=== PATIENT | female | born 2000 | race Caucasian/White ===

== ENCOUNTER → 2019-10-23 15:30 | Outpatient (BNVA) | payer MEDICAID, SELFPAY | PROVIDERS: Family Provider Family Medicine; Visit Provider Obstetrics & Gynecology | DX: N97.9 Female infertility, unspecified (principal); N92.6 Irregular menstruation, unspecified | CPT/HCPCS: 83036; 84146; 84443; 84703 ==

== ENCOUNTER → 2019-10-26 15:37 | Outpatient (BNVA) | payer MEDICAID, SELFPAY | PROVIDERS: Family Provider Family Medicine; Visit Provider Obstetrics & Gynecology | DX: N97.9 Female infertility, unspecified (principal) | CPT/HCPCS: 76830 ==

== ENCOUNTER → 2019-11-09 10:34 | Outpatient (BNVA) | payer MEDICAID, SELFPAY | PROVIDERS: Family Provider Family Medicine; Visit Provider Nurse Practitioner Women's Health | DX: O99.340 Other mental disorders complicating pregnancy, unspecified trimester (principal); F32.9 Major depressive disorder, single episode, unspecified; F41.9 Anxiety disorder, unspecified; Z78.9 Other specified health status; O99.211 Obesity complicating pregnancy, first trimester | CPT/HCPCS: 81000; 84702 ==

== ENCOUNTER → 2019-11-13 14:18 | Outpatient (BNVA) | payer MEDICAID, SELFPAY | PROVIDERS: Family Provider Family Medicine; Visit Provider Nurse Practitioner Women's Health | DX: Z78.9 Other specified health status (principal) | CPT/HCPCS: 84702 ==

== ENCOUNTER → 2019-11-22 14:56 | Outpatient (BNVA) | payer MEDICAID, SELFPAY | PROVIDERS: Family Provider Family Medicine; Visit Provider Obstetrics & Gynecology | DX: Z36.87 Encounter for antenatal screening for uncertain dates (principal); Z3A.01 Less than 8 weeks gestation of pregnancy | CPT/HCPCS: 76817 ==

== ENCOUNTER 2020-01-03 00:37 | Emergency (ER) | payer MEDICAID, SELFPAY ==
[2020-01-03 00:43] VITALS: BP 115/58; PULSE 78; RESP 16; TEMP 36.7; O2SAT 97; BMI 36.0
[2020-01-03 00:49] VITALS: BP 117/74; PULSE 80; RESP 18; O2SAT 97
--- NOTE | 2020-01-03 00:49 | ED_ITS ---
HPI - Nausea/Vomiting/Diarrhea General: Chief complaint: Nausea/Vomiting/Diarrhea Stated complaint: h/a; vomitting Time Seen by Provider: 01/03/20 00:43 Source: patient Mode of arrival: ambulatory Limitations: no limitations History of Present Illness: HPI Narrative: 19-year-old female who is currently 12 weeks states she has had vomiting during the . Patient had a recent vaginosis and is currently on Flagyl and is on her last day. She states she had increased vomiting is unable to hold any thing down. Patient without upper Phenergan. She states she had a mild headache as well. Denies any worsening or improving factors. She denies any abdominal pain. She denies any vaginal bleeding. MD elicited complaint: nausea and vomiting Onset (ago): day(s) Associated nausea: Yes Associated symtoms: Reports headache(s) and nausea; Denies chest pain or dysuria Review of Systems Const: Denies: fever(s), chills, body aches or change in appetite Eyes: Denies: blurry vision or eye discomfort ENMT: Denies: throat pain or dental pain Card: Denies: chest pain Resp: Denies: dyspnea GI: Reports: nausea and vomiting : Denies: dysuria Musc: Denies: neck pain or back pain Skin/Breast: Denies: rash Neuro: Reports: headache(s) Psych: Denies: depression Armani/Lymph: Denies: easy bruising All/Imm: Denies: urticaria PFSH ED PFSH: Medical History Abnormal uterine bleeding (AUB) Anxiety with depression Surgical History No pertinent past surgical history Family History Family/Other Breast cancer, Onset Age: 75 maternal aunt Diabetes maternal aunt Grandmother Stroke maternal Diabetes Maternal grandmother Hypertension Maternal grandmother Mother Diabetes Hypertension Sister Ovarian cancer Denies family history of Colon cancer Clotting disorder Hyperlipidemia Chronic kidney disease (CKD) Anesthesia complication Family history of thyroid problem Bleeding disorder Uterine cancer Social History Smoking and tobacco status: former smoker Quit status (tobacco): has quit using tobacco Year quit tobacco: 2018 Alcohol intake: never Physical Exam Const: COMMON NORMALS: no acute distress, patient oriented x3 and healthy appearing HENMT: COMMON NORMALS: normocephalic and atraumatic HEAD & SCALP: normocephalic and atraumatic Eye: COMMON NORMALS: Equal, round and reactive pupils present and EOMs intact bilaterally PUPIL: Yes Equal, round and reactive pupils present Neck/C-Spine: COMMON NORMALS: full ROM and supple Chest: COMMONS NORMALS: normal inspection of the chest and normal palpation of entire chest wall Resp: COMMON NORMALS: normal respiratory effort, No retractions, No use of accessory muscles and clear to auscultation bilaterally AUSCULTATION: clear to auscultation bilaterally Cardio: COMMON NORMALS: regular rate, regular rhythm and No murmurs present (Cardio) RATE: regular rate RHYTHM: regular rhythm GI: COMMON NORMALS: Normal to inspection, nondistended, normoactive bowel sounds present, Soft to palpation, non-tender and no masses PALPATION: Yes Soft to palpation Extremity: COMMON NORMALS: normal to inspection and full ROM Neuro: COMMON NORMALS: patient oriented x3, moves all extremities and no focal motor deficits Psych: COMMON NORMALS: mental status grossly normal, Normal thought process present and cooperative THOUGHT PROCESS: Normal thought process present Skin: COMMON NORMALS: no rashes or lesions noted and no wounds GENERAL SKIN EXAM: no rashes or lesions noted Course Vital Signs: Vital signs: Vital Signs Temperature 98.1 F 01/03/20 00:43 Pulse Rate 88 01/03/20 01:52 Respiratory Rate 18 01/03/20 01:52 Blood Pressure 111/74 01/03/20 01:52 Pulse Oximetry 100 01/03/20 01:52 MDM - Nausea/Vomiting/Diarrhea MDM Narrative: Medical decision making narrative: Patient presents with hyperemesis gravidarum. She feels much improved here after IV fluids and Reglan is able to tolerate p.o. Patient is stable for discharge and will prescribe her Reglan. She is to follow-up with her primary care doctor in 2 to 4 days and return if worsening. She has no abdominal pain. Discharge Plan Discharge Patient Disposition: Home Clinical Impression: Hyperemesis gravidarum Condition: Stable Prescriptions: New Reglan 10 mg tablet 10 mg PO Q6H PRN (Reason: nausea and vomiting) Qty: 20 RF: 0 No Action ferrous sulfate [FeroSul] 325 mg (65 mg iron) tablet 325 mg PO BID RF: 0 prenat.vits,eugenia,eca-dcla-dkzeb Tablet 1 tab PO DAILY RF: 0 Discharge Orders: Discharge Order (Routine); Ordered 01/03/20 Ordered By: Kathleen Garcia Referrals: León Vences MD [Primary Care Provider] - 1-3 days Discharge Diet: Advance as tolerated Discharge Activity: Resume usual activity Patient Instructions: Hyperemesis Gravidarum (ED) Stand Alone Forms: Work/School Release Discharge Date/Time: 01/03/20 02:00 Coding Level of Care Code ED Horse Wrangler for Chg Fwd Exam Comprehensive
[2020-01-03] MEDS: sodium chloride 0.9% 1,000 ML 999 ML IV (00:59)
[2020-01-03] MEDS: diphenhydrAMINE 50 mg/mL SDV 1mL IVP (01:01)
[2020-01-03] MEDS: metoclopramide 5 mg/mL SDV 2 mL 10 MG IVP (01:02)
[2020-01-03 01:30] VITALS: BP 120/61; PULSE 79; RESP 18; O2SAT 100
[2020-01-03 01:52] VITALS: BP 111/74; PULSE 88; RESP 18; O2SAT 100
--- NOTE | 2020-01-03 01:57 | PC.NURSE ---
i agree with this assessment
== END 2020-01-03 02:00 | disposition home or self-care (01) ==
PROVIDERS: Emergency Provider Emergency Medicine; PCP Family Medicine
DX: O21.0 Mild hyperemesis gravidarum (principal); Z87.891 Personal history of nicotine dependence
CPT/HCPCS: 12345; 96361; 96374; 96375; 99282; 99283; J1200; J2765; J7030

== ENCOUNTER 2020-03-16 21:30 | Outpatient (CLI) | payer MEDICAID, SELFPAY ==
[2020-03-16 21:37] VITALS: RESP 16; TEMP 36.7; BMI 36.2
[2020-03-16 21:44] VITALS: BP 125/59; PULSE 96
[2020-03-16 22:20] VITALS: RESP 16; TEMP 37.1
== END 2020-03-16 22:02 | disposition home or self-care (01) ==
LOC: OPOB 21:31 → OBGYN 21:31
PROVIDERS: PCP Family Medicine; Visit Provider Family Medicine
DX: O36.8190 Decreased fetal movements, unspecified trimester, not applicable or unspecified (principal); Z3A.00 Weeks of gestation of pregnancy not specified
CPT/HCPCS: 59025; 99211

== ENCOUNTER 2020-03-26 13:25 | Outpatient (CLI) | payer MEDICAID, SELFPAY ==
[2020-03-26 13:45] VITALS: BP 0/0
[2020-03-26 13:46] VITALS: BP 130/74; PULSE 91
[2020-03-26 14:20] VITALS: BP 130/74; PULSE 91; RESP 20; TEMP 36.5
[2020-03-26 14:24] VITALS: BMI 35.6
== END 2020-03-26 14:20 | disposition home or self-care (01) ==
LOC: OPOB 13:34 → OBGYN 13:36
PROVIDERS: PCP Family Medicine; Visit Provider Family Medicine
DX: O46.90 Antepartum hemorrhage, unspecified, unspecified trimester (principal); Z3A.00 Weeks of gestation of pregnancy not specified; R10.9 Unspecified abdominal pain
CPT/HCPCS: 99211

== ENCOUNTER 2020-05-15 02:17 | Outpatient (CLI) | payer MEDICAID, SELFPAY ==
[2020-05-15 02:20] VITALS: RESP 16; TEMP 36.8; BMI 37.8
[2020-05-15 02:50] VITALS: TEMP 37
== END 2020-05-15 02:55 | disposition home or self-care (01) ==
LOC: OPOB 02:18 → OBGYN 02:21
PROVIDERS: PCP Family Medicine; Visit Provider Family Medicine
DX: O26.899 Other specified pregnancy related conditions, unspecified trimester (principal); Z3A.00 Weeks of gestation of pregnancy not specified; N89.8 Other specified noninflammatory disorders of vagina
CPT/HCPCS: 83986; 99211

== ENCOUNTER 2020-06-20 21:33 | Outpatient (CLI) | payer MEDICAID, SELFPAY ==
[2020-06-20 21:33] VITALS: BMI 39.3
[2020-06-20 21:57] VITALS: TEMP 36.4
[2020-06-20 21:58] VITALS: BP 120/60; PULSE 98
[2020-06-20 22:31] VITALS: BP 104/58; PULSE 82; TEMP 36.7
== END 2020-06-20 22:41 | disposition home or self-care (01) ==
LOC: OPOB 21:46 → OBGYN 21:47
PROVIDERS: PCP Family Medicine; Visit Provider Family Medicine
DX: O26.899 Other specified pregnancy related conditions, unspecified trimester (principal); Z3A.00 Weeks of gestation of pregnancy not specified; R10.9 Unspecified abdominal pain
CPT/HCPCS: 59025; 83986; 99211

== ENCOUNTER 2020-07-19 14:38 | Outpatient (CLI) | payer MEDICAID, SELFPAY ==
[2020-07-19 14:55] VITALS: BP 141/69; PULSE 89; TEMP 36.6
[2020-07-19 15:22] VITALS: BMI 40.1
[2020-07-19 15:30] VITALS: BP 132/70; PULSE 81
[2020-07-19 15:51] VITALS: BP 144/72; PULSE 90
[2020-07-19 16:25] VITALS: BP 144/72; PULSE 90; RESP 16; TEMP 36.6
== END 2020-07-19 16:25 | disposition home or self-care (01) ==
LOC: OPOB 14:39 → OBGYN 14:41
PROVIDERS: PCP Family Medicine; Visit Provider Family Medicine
DX: O26.899 Other specified pregnancy related conditions, unspecified trimester (principal); Z3A.00 Weeks of gestation of pregnancy not specified; R10.9 Unspecified abdominal pain
CPT/HCPCS: 59025; 99211; J2274; J2370; J2405

== ENCOUNTER 2020-07-19 22:14 | Inpatient (IN) | payer MEDICAID, SELFPAY ==
[2020-07-19] MEDS: lactated ringers 1,000 ML 999 ML IV (22:26)
[2020-07-19 22:30] VITALS: BMI 39.6
[2020-07-19] MEDS: citric acid-sodium citrate 30 mL UDC PO (22:45)
[2020-07-19] MEDS: famotidine 20 mg/2 mL INJ IVP (22:45)
[2020-07-19] MEDS: metoclopramide 5 mg/mL SDV 2 mL 10 MG IVP (22:45)
[2020-07-19 22:52] LABS: Basophils % 0.2 %; Eosinophils % 0.2 %; Hematocrit 34.6 % (37.0-47.0); Hemoglobin 10.9 g/dL (11.5-15.3); Lymphocytes # 1.5 10^3/uL (0.8-4.8); Lymphocytes % 7.4 %; Mean Corpuscular HGB Conc 31.5 g/dL (30.0-36.0); Mean Corpuscular Hemoglobin 24.8 pg (28.0-34.0); Mean Corpuscular Volume 78.8 fL (81-99); Mean Platelet Volume 11.5 fL (7.4-10.4); Monocytes % 5.1 %; Neutrophils # 17.07 10^3/uL (1.8-7.7); Neutrophils % 86.7 %; Nucleated Red Blood Cells % 0 %; Platelet Count 253 10^3/cmm (130-400); Red Blood Count 4.39 10^6/uL (4.1-5.3); Red Cell Distribution Width 13.6 % (12.1-15.1); White Blood Count 19.7 10^3/uL (4.0-10.0)
--- NOTE | 2020-07-19 23:34 | P.ANESUD_ITS ---
Pre-Anesthetic Update Pre-Anesthetic Assessment: Date of Surgery/Procedure: 07/19/20 Preop Kamilah gnosis: IUP Any changes to Pre-Anesthetic Assessment?: Yes Labs Last 48hrs: Laboratory Results - last 48 hr 07/19/20 22:25 WBC 19.7 H RBC 4.39 Hgb 10.9 L Hct 34.6 L MCV 78.8 L MCH 24.8 L MCHC 31.5 RDW 13.6 Plt Count 253 MPV 11.5 H Neut % (Auto) 86.7 Lymph % (Auto) 7.4 [place] % (Auto) 5.1 Eos % (Auto) 0.2 Baso % (Auto) 0.2 Neut # (Auto) 17.07 H Lymph # (Auto) 1.5 [place] # (Auto) 1.0 H Eos # (Auto) 0.0 Baso # (Auto) 0.0 Nucleated RBC % (a uto) 0 Nucleated RBCs # 0.0 Exam: Pre-Anes Outpt Exam: alert, oriented x 3, clear to auscultation bilaterally and regular rate & rhythm Other Pertinent Information: Other Pertinent Information: Breech presentation, laboring, stat C/S. Cardiac Studies: No Data to Display
[2020-07-20] VITALS (21 sets, daily range): BP systolic 101–148; BP diastolic 27–83; PULSE 64–114; RESP 14–18; TEMP 36.2–37; O2SAT 93–99
--- NOTE | 2020-07-20 00:29 | P.HP_ITS ---
Providers/Chief Complaint Admitting Physician: León Vences MD Primary Care Provider: León Vences MD Chief Complaint: ROM HPI ROUNDHOUSE SUPERVISOR History of Present Illness Dianne Hidalgo is a 20 year old 1 female at 40 weeks estimated gestational age who presented to the hospital with spontaneous rupture membranes. After arriving the hospital she was checked and found to be in a breech presentation. She is also 8 cm dilated. As result I was contacted and the decision was made to proceed with a lower transverse section. The patient had an unremarkable . She was GBS negative. Her Covid status is negative. She passed her glucose screen. The remainder of her labs were within normal limits. Review of Systems General: Reports: 10 or more systems reviewed and unremarkable except in HPI and below Const: Reports: fatigue; Denies: fever(s) Eyes: Denies: change in vision Card: Denies: chest pain Musc: Reports: back pain Armani/Lymph: Denies: easy bruising Medications/Allergies Home Medications Medication Instructions Recorded Confirmed Last Taken Type No Known Home Medications 07/19/20 07/19/20 Unknown History Allergies Allergy/AdvReac Type Severity Reaction Status Date / Time No Known Allergies Allergy Verified 07/19/20 15:29 PFSH ROUNDHOUSE SUPERVISOR PFSH: Medical History (Updated 07/20/20 @ 00:32 by León Vences MD) Abnormal uterine bleeding (AUB) Anxiety with depression Surgical History No pertinent past surgical history Family History Family/Other Breast cancer, Onset Age: 75 maternal aunt Diabetes maternal aunt Grandmother Stroke maternal Diabetes Maternal grandmother Hypertension Maternal grandmother Mother Diabetes Hypertension Sister Ovarian cancer Denies family history of Colon cancer Clotting disorder Hyperlipidemia Chronic kidney disease (CKD) Anesthesia complication Family history of thyroid problem Bleeding disorder Uterine cancer Social History Smoking and tobacco status: former smoker Quit status (tobacco): has quit using tobacco Year quit tobacco: 2018 Alcohol intake: never Other Female Reproductive History: Hx Age of Menarche: 8 Duration of menses: 6-7 days (5-7 days) Cycle Length: irregular Menstrual flow: normal/abnormal: heavy History History History 1 Term 0 Miscarriages/Ectopic 1 0 Living Children 0 Care JOSE Calculator Estimated Delivery Date Method Current WG Current Estimate 06/20/20 LMP (Uncertain) 44w 2d Expected Delivery Route/Plan Vaginal. Specific Issues/Plans * UNKNOWN LMP * OBESITY * PRE- DEPRESSION AND ANXIETY Physical Exam Narrative: EXAM NARRATIVE: Obese Const: COMMON NORMALS: patient oriented x3 and alert HENMT: COMMON NORMALS: moist oral mucous membranes HEAD & SCALP: normal to inspection Chest: COMMONS NORMALS: normal inspection of the chest Resp: COMMON NORMALS: clear to auscultation bilaterally AUSCULTATION: clear to auscultation bilaterally Cardio: COMMON NORMALS: regular rate and regular rhythm RATE: regular rate RHYTHM: regular rhythm GI: INSPECTION: Yes normal to inspection and Yes other (Gravid) Extremity: COMMON NORMALS: normal to inspection GENERAL: Yes edema (Trace) Neuro: COMMON NORMALS: patient oriented x3, moves all extremities and no sen silvestre deficits noted SENSORIUM/ORIENTATION: Yes alert Psych: COMMON NORMALS: mental status grossly normal Skin: COMMON NORMALS: no rashes or lesions noted GENERAL SKIN EXAM: no rashes or lesions noted Data : 07/19/20 22:25 A&P Assessment and plan (1) Obesity affecting : Status: Acute Qualifiers: Trimester: first trimester Qualified Code(s): O99.211 - Obesity complicating , first trimester (2) Anxiety during : Status: Acute (3) Depression affecting : Status: Acute (4) 40 weeks gestation of : Status: Acute (5) Breech presentation: Due to the baby's breech presentation, I discussed the risks and alternatives with the patient and her partner. I discussed the risks of bleeding, infection, and damage intra-abdominal organs. There are no further questions and wish to proceed. Status: Acute Attestations Medical Necessity Statement*: Routine and post care Coding Level of Care Code Acute Supervisor Accounting Clerks for Traci Quan Diagnoses Obesity affecting O99.211 Trimester: first trimester Anxiety during O99.340; F41.9 Depression affecting O99.340; F32.9 40 weeks gestation of Z3A.40 Breech presentation O32.1XX0
--- NOTE | 2020-07-20 00:34 | P.OP_ITS ---
Operative Report Date of procedure: July 20, 2020 Pre-op Diagnosis: IUP Pre-op Diagnosis: 40 weeks, breech presentation, spontaneous rupture of membranes, active labor Post-op diagnosis: same Procedure Done: Low transverse section Specimens removed/disposition: 1. Female infant with a weight 7 pounds 13 ounces of and Apgars of 8, 9 2. Placenta with a three-vessel cord delivered intact Pathology: none sent Surgeon: León Vences Anesthesia: Other (Spinal) Estimated blood loss (mL): 1,000 Condition: stable Brief History: Refer to history and physical Procedure: The patient was brought back to the operating room where she was prepped and draped in usual sterile fashion. Anesthesia was found to be adeq uate. A lower transverse skin incision was then made with a #10 blade. I then dissected down to the underlying subcutaneous tissue until arriving at the prerectal fascia. The fascia was then nicked with the scalpel bilaterally. The fascial incisions were then carried laterally with Weber scissors. Attention was then turned to the superior aspect of the incision which was grasped with kochers and tented up away from the underlying rectus abdominis muscles. The muscles were then dissected away from the fascia manually, and later with Weber scissors. Attention was then turned to the inferior aspect of the incision, and the fascia was dissected away from the underlying muscle in similar fashion. The rectus abdominis muscles were then spread manually. The peritoneum was entered manually. Excellent visualization of the uterus was noted. A lower transverse uterine incision was then made with a #10 blade. Upon arriving at the intrauterine cavity, the uterine incision was then extended manually. The infant was noted to be a nai breech position. The baby was delivered without difficulty. After delivery of the head, the mouth and nose were suctioned at the site of the incision. Meconium was noted. There was no nuchal cord. The cord was cut and clamped. The baby was then handed to the waiting nurse. The placenta was removed intact. The uterus was externalized. The in trauterine cavity was cleansed of any remaining debris. The uterine incision was reapproximated in 2 layers. The first layer was performed with 0 Vicryl in a running locked stitch. The second layer was an imbricating stitch also using 0 Vicryl. The uterus was replaced into the abdomen. The peritoneum was then irrigated with warm saline. I reexamined the uterine incision and found it to be hemostatic. The rectus abdominis muscles were then reapproximated using 0 Vicryl in a running stitch. The fascia was then reapproximated using 0 Vicryl in running stitch. The subcutaneous tissue was then reapproximated using 0 Vicryl running stitch. The skin was reapproximated using july. A sterile dressing was placed. All counts were correct x2. Both the mother and baby were in stable condition.
[2020-07-20] MEDS: ondansetron 2 mg/ML SDV 2 mL 4 MG IVP (02:13)
[2020-07-20] MEDS: promethazine 25 mg/mL SDV 1 mL IM (04:15)
[2020-07-20] MEDS: ketorolac 30 mg/mL INJ IVP (06:37)
--- NOTE | 2020-07-20 09:37 | ANE.PACU2 ---
Inpatient post-anesthesia follow up: Airway intact: Yes Vital signs: Temperature 98.6 F Pulse Rate 91 Respiratory Rate 16 Blood Pressure 130/83 Pulse Oximetry 98 Oxygen Delivery Me thod Room Air Oxygen Flow Rate Fraction of Inspir ed Oxygen Hydration adequate: Yes Nausea and vomiting: No Pain level: 2 Mental status: Baseline
[2020-07-20 13:36] LABS: Hematocrit 27.6 % (37.0-47.0); Hemoglobin 8.8 g/dL (11.5-15.3); Mean Corpuscular HGB Conc 31.9 g/dL (30.0-36.0); Mean Corpuscular Hemoglobin 24.9 pg (28.0-34.0); Mean Corpuscular Volume 78.2 fL (81-99); Mean Platelet Volume 11.1 fL (7.4-10.4); Platelet Count 189 10^3/cmm (130-400); Red Blood Count 3.53 10^6/uL (4.1-5.3); Red Cell Distribution Width 13.9 % (12.1-15.1); White Blood Count 19.3 10^3/uL (4.0-10.0)
[2020-07-20] MEDS: ibuprofen 800 mg tablet PO ×2 (15:49→21:04)
[2020-07-20] MEDS: ferrous sulfate EC 325 mg Tablet PO (18:11)
[2020-07-20] MEDS: docusate sodium 100 mg Capsule PO (18:11)
--- NOTE | 2020-07-20 20:32 | PC.NURSE ---
Dressing removed by this nurse. Incision C/D/I, BOBBIN STRIPPER. Patient instructed with shower care. Linens changed, trash and dirty linens taken out of room. JEANNE MOMIN
[2020-07-20] MEDS: HYDROcodone-acetaminophen 5-325 mg Tablet PO (22:50)
--- NOTE | 2020-07-21 06:24 | PC.NURSE ---
Patient states she passed gas at 0300 AR RN
[2020-07-21 06:25] VITALS: BP 116/71; PULSE 76; RESP 18; TEMP 37.1; O2SAT 97
[2020-07-21] MEDS: ibuprofen 800 mg tablet PO (08:50)
[2020-07-21] MEDS: ferrous sulfate EC 325 mg Tablet PO (08:50)
[2020-07-21] MEDS: prenatal vitamin Capsule 1 CAP PO (08:50)
[2020-07-21] MEDS: docusate sodium 100 mg Capsule PO (08:50)
[2020-07-21 10:00] VITALS: BP 111/82; PULSE 100; RESP 18; TEMP 36.8; O2SAT 99
--- NOTE | 2020-07-21 12:15 | P.DS_ITS ---
Discharge Providers OPERATIONS SUPPORT REPRESENTATIVE Date of Admission: 07/19/20 22:14 Date of Discharge: 07/21/20 Attending Provider at Admission: León Vences MD Attending Provider at Discharge: León Vences MD Primary Care Provider: León Vences MD Diagnoses at Discharge Discharge Diagnosis (1) Obesity affecting : Status: Acute Qualifiers: Trimester: first trimester Qualified Code(s): O99.211 - Obesity complicating , first trimester (2) Anxiety during : Status: Acute (3) Depression affecting : Status: Acute (4) 40 weeks gestation of : Status: Acute (5) Breech presentation: Status: Acute Reason for Visit Reason for Visit: ROM Hospital Course Hospital Course The patient presented to the hospital in active labor and was ruptured membranes. She was checked and found to be in breech position. As result the patient was set up for a section. The was performed without complications. Patient's course was also uncomplicated. Her bleeding was within normal limits. Her pain was controlled. She was able to ambulate, she passed gas. Her diet was advanced without difficulty. There were no concerns. The patient did have some anxieties as far as doing with her baby. The nurses were able to help her to address those anxieties. Information Peripartum Data: Delivery Method: Physical Exam Narrative: EXAM NARRATIVE: She is in no acute distress Lungs are clear auscultation bilaterally Her heart has a regular rate and rhythm Her fundus is below the umbilicus and firm Her dressing is clean, dry and intact Her extremities have trace edema Urinary Catheter Management^: Pereira: Cath Placed During This Visit: yes, but has since been removed by the nurse Reason for Continuing Indwelling Catheter: Decision to DC Catheter Urinary Catheter Date of Insertion: 07/19/20 Urinary Catheter Time of Insertion: 23:19 Date Urinary Catheter Removed: 07/20/20 Time Urinary Catheter Discontinued: 10:33 Discharge Data Data Completed and Pending: Labs from last 24 hours 07/20/20 13:20 WBC 19.3 H RBC 3.53 L Hgb 8.8 L Hct 27.6 L MCV 78.2 L MCH 24.9 L MCHC 31.9 RDW 13.9 Plt Count 189 MPV 11.1 H Vitals: Last Vital Signs Temp 98.2 F 07/21/20 10:00 Pulse 100 07/21/20 10:00 Resp 18 07/21/20 10:00 BP 111/82 07/21/20 10:00 Pulse Ox 99 07/21/20 10:00 Discharge Plan Discharge Patient Disposition: Home Condition: Stable Prescriptions: New hydrocodone-acetaminophen 5-325 mg Tablet 1 - 2 tab PO Q4H PRN (Reason: Moderate To Severe Pain) Qty: 30 RF: 0 ibuprofen 800 mg Tablet 800 mg PO TID Qty: 45 RF: 0 -U 106.5-1 mg Capsule 1 cap PO BREAKFAST Qty: 90 RF: 1 hydrocodone-acetaminophen 5-325 mg tablet 1 tab PO Q6H PRN (Reason: pain) Qty: 30 RF: 0 Discharge Orders: Discharge Order (Routine); Ordered 07/21/20 Ordered By: León Vences Referrals: León Vences MD [Primary Care Provider] - 4-7 days (schedule at the same time as baby's appt Also set up appt at 6 weeks) Discharge Diet: Regular Discharge Activity: Limit activity as instructed Patient Instructions: Depression (GEN), and the Working Mom (GEN), Expression, Collection and Storage of Breastmilk (GEN), How to Hold and Breastfeed Your Baby (GEN), and Nipple Soreness (GEN), Breast Fullness Versus Breast Engorgement (GEN), How to Increase Your Milk Supply (DC), How to Tell if Your Baby is Getting Enough Breast Milk (GEN), OB C- Section - Vangie/Jeanna, OB Discharge Report, OB Food/Drug Interaction Guide, Abnormal Bleeding Discharge Attestations OPERATIONS SUPPORT REPRESENTATIVE Time Spent in Discharge Care*: less than 30 min Coding Level of Care Code Acute Post Office Markup Clerk for Chg Fwd Diagnoses Obesity affecting O99.211 Trimester: first trimester Anxiety during O99.340; F41.9 Depression affecting O99.340; F32.9 40 weeks gestation of Z3A.40 Breech presentation O32.1XX0
[2020-07-21 14:20] VITALS: BP 115/83; PULSE 102; RESP 16; TEMP 36.7; O2SAT 99
== END 2020-07-21 14:15 | disposition home or self-care (01) | DRG 788 ==
PROVIDERS: Admitting Provider Family Medicine; PCP Family Medicine; Visit Provider Family Medicine
PROC: (CPT 59514; principal; 2020-07-19 22:50)
DX: O32.1XX0 Maternal care for breech presentation, not applicable or unspecified (principal); Z3A.40 40 weeks gestation of pregnancy; Z37.0 Single live birth; Z87.891 Personal history of nicotine dependence; O99.214 Obesity complicating childbirth; O99.344 Other mental disorders complicating childbirth; F41.8 Other specified anxiety disorders
CPT/HCPCS: 12345; 36415; 51702; 59409; 85025; 85027; 96372; 99211; J0690; J1885; J2405; J2550; J2765; J3490

== ENCOUNTER → 2021-06-20 17:35 | Outpatient (BNVA) | payer MEDICAID, SELFPAY | PROVIDERS: PCP Family Medicine; Visit Provider Nurse Practitioner | DX: R10.9 Unspecified abdominal pain (principal); K29.00 Acute gastritis without bleeding | CPT/HCPCS: 81000 ==

== ENCOUNTER 2021-06-22 21:25 | Emergency (ER) | payer MEDICAID, SELFPAY ==
[2021-06-22 21:32] VITALS: BP 138/86; PULSE 73; RESP 18; TEMP 36.7; O2SAT 98; BMI 36.3
--- NOTE | 2021-06-22 22:47 | W.ED.OVERDOS ---
HPI - Overdose General: Chief Complaint: Overdose Stated Complaint: Took to many medication on accident Time Seen by Provider: 06/22/21 22:47 History of Present Illness: HPI Narrative: 21-year-old female who takes 20 mg of esCitalopram daily forgotten that she had taken her dose and repeated with a second dose. Patient reports that she feels poorly but otherwise does not have any abnormal symptoms. Spouse brought her in due to what he reports some hallucinations and acting abnormal. Spouse states that she is doing better since she is got into the ER. Patient denies any suicidal homicidal intention. Patient denies any chest pain or other symptoms. Review of Systems Psych: Reports: mood swings [facility] ED PFSH: Medical History (Updated 06/22/21 @ 22:49 by ZULEMA Alejandre) Abnormal uterine bleeding (AUB) Anxiety with depression Surgical History No pertinent past surgical history Family History Family/Other Breast cancer, Onset Age: 75 maternal aunt Diabetes maternal aunt Grandmother Stroke maternal Diabetes Maternal grandmother Hypertension Maternal grandmother Mother Diabetes Hypertension Sister Ovarian cancer Denies family history of Colon cancer Clotting disorder Hyperlipidemia Chronic kidney disease (CKD) Anesthesia complication Family history of thyroid problem Bleeding disorder Uterine cancer Social History Smoking and tobacco status: never smoked Quit status (tobacco): has quit using tobacco Year quit tobacco: 2018 Alcohol intake: never Female Reproductive History: Date of last menstrual period: 05/23/21 Physical Exam Const: COMMON NORMALS: alert GENERAL APPEARANCE: cooperative and well kempt HENMT: COMMON NORMALS: atraumatic HEAD & SCALP: atraumatic Resp: COMMON NORMALS: normal respiratory effort and clear to auscultation bilaterally AUSCULTATION: clear to auscultation bilaterally Cardio: COMMON NORMALS: regular rate and regular rhythm RATE: regular rate RHYTHM: regular rhythm Neuro: SENSORIUM/ORIENTATION: Yes alert Psych: COMMON NORMALS: Normal thought process present APPEARANCE: Yes well kempt ATTITUDE: Yes engaged ACTIVITY/MOTOR BEHAVIOR: Yes appropriate eye contact SPEECH: Yes rapid MOOD & AFFECT: Yes elevated mood THOUGHT PROCESS: Normal thought process present THOUGHT CONTENT: Yes Normal thought content present Course Vital Signs: Vital signs: Vital Signs Temperature 98.1 F 06/22/21 21:32 Pulse Rate 73 06/22/21 21:32 Respiratory Rate 18 06/22/21 21:32 Blood Pressure 138/86 06/22/21 21:32 Pulse Oximetry 98 06/22/21 21:32 MDM - Overdose MDM Narrative: Medical decision making narrative: Patient came in for evaluation after taking a second dose of esCitalopram for total of 40 mg. On exam patient is alert and oriented. Patient does seem to have a very elevated mood. Heart rates regular in the 70s. Skin is warm and dry. Vital signs otherwise were normal. Differential diagnosis includes accidental versus intentional overdose, psychosis, jessy, serotonin syndrome. I believe this is a accidental overdose. Patient is not having any hallucinations or signs of psychosis or jessy at this time. Patient does have a mildly elevated mood which is probably due to her extra serotonin. There is no sign of serotonin syndrome otherwise. Recommended patient taking a half a tablet of her medication tomorrow and then returning to normal dosing the day after. Patient reports understanding of care and her spouse also reported understanding. Discharge Plan Discharge Patient Disposition: Home Clinical Impression: Accidental medication error Qualifiers: Encounter type: initial encounter Qualified Code(s): T50.901A - Poisoning by unspecified drugs, medicaments and biological substances, accidental (unintentional), initial encounter Condition: Stable Prescriptions: No Action pantoprazole [Protonix] 20 mg tablet,delayed release (DR/EC) 20 mg PO DAILY 14 Days Qty: 14 RF: 0 Discharge Orders: Discharge ED (Routine); Ordered 06/22/21 Ordered By: Panchito Krishnamurthy Referrals: León Vences MD [Primary Care Provider] - Discharge Diet: Usual diet Discharge Activity: Increase activity as tolerated Patient Instructions: Adverse Drug Reaction (ED) Activity Restrictions/Additional Instructions: Home and rest. Drink plenty of water. Avoid the use of alcohol with antidepressants. Follow-up with primary care for further instruction. Return to the ER for new concerns. Coding Level of Care Code ED Early Childhood Special Educator for Traci Quan
[2021-06-22 23:16] VITALS: BP 131/82; PULSE 71; RESP 16; TEMP 36.7; O2SAT 99
== END 2021-06-22 23:17 | disposition home or self-care (01) ==
PROVIDERS: Emergency Provider Nurse Practitioner Family; PCP Family Medicine
DX: T43.221A Poisoning by selective serotonin reuptake inhibitors, accidental (unintentional), initial encounter (principal); R45.89 Other symptoms and signs involving emotional state; F41.8 Other specified anxiety disorders; Z87.891 Personal history of nicotine dependence
CPT/HCPCS: 99282

== ENCOUNTER 2022-11-19 13:20 | Outpatient (CLI) | payer MEDICAID, SELFPAY ==
--- NOTE | 2022-11-19 13:26 | CT_ITS ---
WS: [id number] CT ABDOMEN AND PELVIS WITH CONTRAST HISTORY: GENERALIZED ABDOMINAL PAIN TECHNIQUE: Imaging performed of the abdomen and pelvis with IV contrast. Single phase imaging of the abdomen. Coronal and sagittal reformats are submitted. All CT scans at [facility] use at [address] one of these dose optimization techniques: automated exposure control; mA and/or kV adjustment per patient size (includes targeted exams where dose is matched to clinical indication); or iterative re construction. IV CONTRAST: Omnipaque 350; 100 mL IV. Oral contrast: Yes. DLP: 1258.55 mGy.cm COMPARISON: 07/13/2016 Lower thorax: Lung bases are clear. Heart is normal size. No hiatal hernia. Liver/biliary system: Normal size with no intrahepatic dilatation. Gallbladder: Normal. No gallstones or wall thickening. No pericholecystic fluid. Pancreas: Normal size pancreas and pancreatic duct. No adjacent inflammation. Spleen: Normal size spleen. No mass or infarct. Adrenal glands: Normal. Right kidney: Normal. Left kidney: Normal. Aorta: Normal. Lymphadenopathy: None. Free fluid: None. GI tract: Stomach is distended with food products. No small bowel obstruction. Mild diffuse constipat ion. Normal appendix. No colitis or obstruction. Abdominal wall: Unremarkable abdominal wall. No hernia. Pelvis: No free fluid or adenopathy within the pelvis. Mildly prominent ovaries. RIGHT ovary measures 4.0 x 4.1 cm. Small cysts are present. LEFT ovary measures 2.8 x 3.2 cm with small cysts. Prominence of the endometrium up to 2 cm. No free fluid or adenopathy. Bones: Unremarkable. CT/CT abdomen pelvis w con* [id number] IMPRESSION: 1. Normal appendix. 2. No GI tract obstruction. 3. Mild diffuse constipation. 4. No renal obstruction. 5. Mild prominence of the endometrium may be related to the menstrual cycle.
[2022-11-19] MEDS: iohexol 350 mg/mL 500 mL Btl (per mL) PO (13:29)
[2022-11-19] MEDS: iohexol 350 mg/mL 500 mL Btl (per mL) IV (13:29)
== END 2022-11-19 13:21 | disposition home or self-care (01) ==
PROVIDERS: PCP Family Medicine; Visit Provider Nurse Practitioner
DX: R10.84 Generalized abdominal pain (principal); K59.00 Constipation, unspecified
CPT/HCPCS: 74177; Q9967

== ENCOUNTER → 2023-02-16 16:30 | Outpatient (BNVA) | payer MEDICAID, SELFPAY | PROVIDERS: PCP Family Medicine; Visit Provider Internal Medicine | DX: E03.9 Hypothyroidism, unspecified (principal); Z34.90 Encounter for supervision of normal pregnancy, unspecified, unspecified trimester | CPT/HCPCS: 36415; 81025; 84439; 87635 ==

== ENCOUNTER → 2023-05-26 15:00 | Outpatient (BNVA) | payer MEDICAID, SELFPAY | PROVIDERS: PCP Family Medicine; Visit Provider Emergency Medicine | DX: R68.89 Other general symptoms and signs (principal); J02.9 Acute pharyngitis, unspecified | CPT/HCPCS: 87400; 87420; 87426; 87880 ==

== ENCOUNTER 2023-06-29 21:32 | Emergency (ER) | payer MEDICAID, SELFPAY ==
[2023-06-29 21:35] VITALS: BP 159/83; PULSE 106; RESP 18; TEMP 36.9; O2SAT 100
[2023-06-29 22:20] LABS: HCG Qualitative Urine. Negative (Negative)
[2023-06-29] MEDS: ondansetron 2 mg/ML SDV 2 mL 4 MG IVP (22:25)
[2023-06-29 22:28] LABS: Basophils # 0.1 10^3/uL (0.0-0.1); Basophils % 0.5 %; Eosinophils # 0.2 10^3/uL (0.0-0.8); Eosinophils % 1.6 %; Lymphocytes % 25.5 %; Mean Corpuscular HGB Conc 32.5 g/dL (30-55); Mean Corpuscular Hemoglobin 26.5 pg (27-33); Mean Corpuscular Volume 81.4 fl (85-98); Mean Platelet Volume 10.1 fL (7.4-10.4); Monocytes # 0.7 10^3/uL (0.2-0.9); Monocytes % 5.9 %; Neutrophils # 7.65 10^3/uL (1.8-7.7); Neutrophils % 66.2 %; Nucleated Red Blood Cells % 0 %; Platelet Count 277 10^3/cmm (157-399); Red Blood Count 4.42 10^6/uL (3.85-5.65); Red Cell Distribution Width 13.2 % (12.1-15.1); White Blood Count 11.55 10^3/uL (3.29-11.43)
[2023-06-29] MEDS: sodium chloride 0.9% 1,000 ML 999 ML IV (22:28)
[2023-06-29 22:32] LABS: Add Urine Microscopic? YES; Bilirubin Urine Neg (Negative); Blood Urine 3+ (Negative); Glucose Urine UA Norm (Normal); Ketones Urine Negative (Negative); Leukocyte Esterase Urine Negative (Negative); Nitrate Urine Negative (Negative); Protein Urine Neg (Negative); Urine Appearance Hazy (CLEAR); Urine Color Orange (Yellow); Urobilinogen Urine Neg (Negative); pH Urine 6 (5-7)
[2023-06-29 22:33] LABS: Bacteria Urine TRACE /hpf
[2023-06-29 22:34] LABS: Add Urine Culture? Yes; Mucus Urine 1+ /hpf
--- NOTE | 2023-06-29 22:38 | CTR_ITS ---
PROCEDURE INFORMATION: Exam: CT Abdomen And Pelvis With Contrast Exam date and time: 06/29/2023 11:12 PM Age: 23 years old Clinical indication: Abdominal pain; Localized; Right lower quadrant (rlq); Prior surgery; Surgery date: 6+ months; Surgery type: Csection 3 years ago; Additional info: Rlq abd pain, n/v TECHNIQUE: Imaging protocol: Computed tomography of the abdomen and pelvis with contrast. Radiation optimization: All CT scans at this facility use at least one of these dose optimization techniques: automated exposure control; mA and/or kV adjustment per patient size (includes targeted exams where dose is matched to clinical indication); or iterative reconstruction. Contrast material: OMNI 350; Contrast volume: 100 ml; Contrast route: INTRAVENOUS (IV); COMPARISON: CT abdomen pelvis w con* [id number] 11/19/2022 2:27 PM RADIATION DOSE METRICS: Total DLP (mGy-cm): 947 FINDINGS: Diaphragm: There is a small hiatal hernia. Liver: Normal. No mass. Gallbladder and bile ducts: The liverThe gallbladder is normal. There is no common bile duct dilation. Pancreas: The pancreas is normal. Spleen: The spleen is normal. Adrenal glands: The adrenal glands are normal. Kidneys and ureters: The kidneys are normal. There is no evidence of hydronephrosis. There is no evidence of renal or ureteral calcifications. Stomach and bowel: There is no evidence of colitis/diverticulitis. There is no evidence of intestinal obstruction. Appendix: A normal appendix is identified. Intraperitoneal space: There is no evidence of free intraperitoneal fluid. Vasculature: The aorta is normal. Lymph nodes: There is no evidence of lymphadenopathy. Urinary bladder: Unremarkable as visualized. Reproductive: There are 21.6 cm sized cysts in the right ovary. Bones/joints: Unremarkable. No acute fracture. Soft tissues: Unremarkable. CT/CT abdomen pelvis w con* [id number] IMPRESSION: 1. Small right ovarian cysts. 2. No acute finding.
--- NOTE | 2023-06-29 22:40 | ED_ITS ---
HPI - Abdominal Pain 2 General: Chief Complaint: Abdominal Pain Stated Complaint: abdomen pain Time Seen by Provider: 06/29/23 22:11 History of Present Illness: Patient presents to the ER with complaints of right lower quadrant abdominal pain that started about 1 hour prior to arrival. Patient has had nausea with vomiting. Patient describes the pain as sharp and stabbing at first but then just achy. Patient has had an ovarian cyst that ruptured on her right side in the past but said that was worse than this. And not the same. Patient's only other abdominal surgery was a . Patient does not have any bowel or bladder complaints at this time. Review of Systems 2 General: Reports: 10 or more systems reviewed and unremarkable except in HPI and below PFSH ED 2 PFSH: Medical History (Updated 06/30/23 @ 00:01 by Seamus Thurman DO) Anxiety with depression Abnormal uterine bleeding (AUB) Surgical History No pertinent past surgical history Family History Family/Other Breast cancer, Onset Age: 75 maternal aunt Diabetes maternal aunt Grandmother Stroke maternal Diabetes Maternal grandmother Hypertension Maternal grandmother Mother Diabetes Hypertension Sister Ovarian cancer Denies family history of Colon cancer Clotting disorder Hyperlipidemia Chronic kidney disease (CKD) Anesthesia complication Family history of thyroid problem Bleeding disorder Uterine cancer Social History Smoking and tobacco/nicotine status: never used tobacco/nicotine Quit status (tobacco/nicotine): has quit using Year quit tobacco: 2018 Alcohol intake: never Substance/Drug Use: never Physical Exam 2 Const: COMMON NORMALS: no acute distress, average body habitus, patient oriented x3, no limitations, healthy appearing, alert and well nourished HENMT: COMMON NORMALS: normocephalic, atraumatic, hearing grossly normal bilaterally, external ears normal, Normal external nose present, moist oral mucous membranes and oropharynx normal HEAD & SCALP: normocephalic and atraumatic NOSE: Normal external nose present EXTERNAL EAR: Yes external ears normal Neck/C-Spine: COMMON NORMALS: no JVD Chest: COMMONS NORMALS: normal inspection of the chest and normal palpation of entire chest wall Resp: COMMON NORMALS: normal respiratory effort, No retractions, No use of accessory muscles and clear to auscultation bilaterally AUSCULTATION: clear to auscultation bilaterally Cardio: COMMON NORMALS: no JVD, regular rate, regular rhythm, S1 normal heart sound present, S2 normal heart sound present, No gallops present (Cardio), No clicks present (Cardio), No murmurs present (Cardio) and No rub (Cardio) R ATE: regular rate RHYTHM: regular rhythm HEART SOUNDS: S1 normal heart sound present and S2 normal heart sound present GI: COMMON NORMALS: Normal to inspection, nondistended, normoactive bowel sounds present, Soft to palpation, no masses and no bruits; negative for non-tender (Tender to palpate right lower quadrant.) PALPATION: Yes Soft to palpation Neuro: COMMON NORMALS: patient oriented x3 SENSORIUM/ORIENTATION: Yes alert Course 2 Vital Signs: Vital signs: Vital Signs Temperature 98.5 F 06/29/23 21:35 Pulse Rate 106 H 06/29/23 21:35 Respiratory Rate 18 06/29/23 21:35 Blood Pressure 159/83 06/29/23 21:35 Pulse Oximetry 100 06/29/23 21:35 Oxygen Delivery Me thod Room Air 06/29/23 21:35 MDM - Abdominal Pain Medical Decision Making Patient presented right lower quadrant pain. She had lab work including urinalysis as well as abdominal pelvic CT all of which was benign except for showing 2 small right ovarian cyst. These results was discussed with the patient and she is comfortable going home. Patient be discharged home to follow-up with her PCP and/or BRIQUETTE MACHINE OPERATOR within the next 7 to 10 days as needed. Differential Diagnosis Likely abdominal pain; Unlikely acute appendicitis, calculus of kidney, constipation, diverticulitis, endometriosis, gastroenteritis, pancreatitis or small bowel obstruction Medical Records I reviewed the patient's medical records. Lab Data I reviewed the patient's lab results. 06/29/23 22:18 06/29/23 22:18 Labs/Radiology: Radiology Impressions Abdomen/Pelvis CT 06/29/23 22:38 IMPRESSION: 1. Small right ovarian cysts. 2. No acute finding. Laboratory Results WBC 11.55 10^3/uL (3.29-11.43) H 06/29/23 22:18 RBC 4.42 10^6/uL (3.85-5.65) 06/29/23 22:18 Hgb 11.70 g/dL (11.27-16.99) 06/29/23 22:18 Hct 36.0 % (36-47) 06/29/23 22:18 MCV 81.4 fl (85-98) L 06/29/23 22:18 MCH 26.5 pg (27-33) L 06/29/23 22:18 MCHC 32.5 g/dL (30-55) 06/29/23 22:18 RDW 13.2 % (12.1-15.1) 06/29/23 22:18 Plt Count 277 10^3/cmm (157-399) 06/29/23 22:18 MPV 10.1 fL (7.4-10.4) 06/29/23 22:18 Neut % (Auto) 66.2 % 06/29/23 22:18 Lymph % (Auto) 25.5 % 06/29/23 22:18 [place] % (Auto) 5.9 % 06/29/23 22:18 Eos % (Auto) 1.6 % 06/29/23 22:18 Baso % (Auto) 0.5 % 06/29/23 22:18 Neut # (Auto) 7.65 10^3/uL (1.8-7.7) 06/29/23 22:18 Lymph # (Auto) 3.0 10^3/uL (0.8-4.8) 06/29/23 22:18 [place] # (Auto) 0.7 10^3/uL (0.2-0.9) 06/29/23 22:18 Eos # (Auto) 0.2 10^3/uL (0.0-0.8) 06/29/23 22:18 Baso # (Auto) 0.1 10^3/uL (0.0-0.1) 06/29/23 22:18 Nucleated RBC % (auto) 0 % 06/29/23 22:18 Nucleated RBCs # 0.0 /100WBC 06/29/23 22:18 Sodium 138 mmol/L (136-145) 06/29/23 22:18 Potassium 3.8 mmol/L (3.5-5.1) 06/29/23 22:18 Chloride 103 mmol/L (98-107) 06/29/23 22:18 Carbon Dioxide 24 mmol/L (22-29) 06/29/23 22:18 Anion Gap 14.8 (5-19) 06/29/23 22:18 BUN 11 mg/dL (6-20) 06/29/23 22:18 Creatinine 0.6 mg/dL (0.5-0.9) 06/29/23 22:18 GFR Calculation 122.8 mL/min (90-130) 06/29/23 22:18 Glucose 96 mg/dL (65-115) 06/29/23 22:18 Calculated Osmolality 285 mOsm/kg (285-295) 06/29/23 22:18 Calcium 9.3 mg/dL (8.5-10.5) 06/29/23 22:18 Total Bilirubin 0.2 mg/dL (0.15-1.2) 06/29/23 22:18 AST 13 U/L (0-32) 06/29/23 22:18 ALT 10 U/L (0-33) 06/29/23 22:18 Alkaline Phosphatase 75 U/L (35-105) 06/29/23 22:18 Total Protein 7.8 g/dL (6.6-8.7) 06/29/23 22:18 Albumin 4.2 g/dL (3.5-5.2) 06/29/23 22:18 Globulin 3.6 g/dL (1.3-4.6) 06/29/23 22:18 Lipase 34 U/L (13-60) 06/29/23 22:18 HCG, Qual Negative (Negative) 06/29/23 22:05 Urine Color [place] (Yellow) A 06/29/23 22:05 Urine Appearance Hazy (CLEAR) A 06/29/23 22:05 Urine pH 6 (5-7) 06/29/23 22:05 Ur Specific [place] 1.010 (1.005-1.030) 06/29/23 22:05 Urine Protein Neg (Negative) 06/29/23 22:05 Urine Glucose (UA) Norm (Normal) 06/29/23 22:05 Urine Ketones Negative (Negative) 06/29/23 22:05 Urine Blood 3+ (Negative) H 06/29/23 22:05 Urine Nitrate Negative (Negative) 06/29/23 22:05 Urine Bilirubin Neg (Negative) 06/29/23 22:05 Urine Urobilinogen Neg mg/dL (Negative) 06/29/23 22:05 Ur Leukocyte Esterase Negative (Negative) 06/29/23 22:05 Urine RBC 10-15 /hpf (0-2) H 06/29/23 22:05 Urine WBC None /hpf (0-5) 06/29/23 22:05 Ur Squamous Epith Cells 5-10 /hpf (0-5) H 06/29/23 22:05 Amorphous Sediment Not Reportable 06/29/23 22:05 Urine Bacteria Trace /hpf (NONE) 06/29/23 22:05 Urine Mucus 1+ /hpf 06/29/23 22:05 All radiology interpretation(s) finalized by discharge Discharge Plan Discharge Patient Disposition: Home Clinical Impression: Cyst of right ovary, Abdominal pain, right lower quadrant Condition: Stable Prescriptions: No Action buspirone 10 mg tablet 10 mg PO TID phentermine 37.5 mg capsule 37.5 mg PO DAILY Rx Instructions: must administer 30 minutes before or 1-2 hours after breakfast [id number] [Bromfed DM] 2-30-10 mg/5 mL syrup 7.5 ml PO Q6H PRN (Reason: cold symptoms) Qty: 160 0RF levothyroxine 50 mcg tablet 50 mcg PO DAILY Discharge Orders: Discharge ED (Routine); Ordered 06/30/23 Ordered By: Seamus Thurman Referrals: León Vences MD [Primary Care Provider] - 1 week Patient Instructions: Abdominal Pain (ED), Ovarian Cyst (ED) Activity Restrictions/Additional Instructions: Your CT scan showed you have 2 small right ovarian cysts. This may be the cause of your lower abdominal pain. Please follow-up with your family practice physician and/or BRIQUETTE MACHINE OPERATOR within the next 7 to 10 days for further evaluation and treatment. If your pain changes or worsens and becomes unbearable please return to the ER. Coding Level of Care Code ED Billiard Table Assembler for Traci Quan
[2023-06-29 22:45] LABS: Alanine Aminotransferase 10 U/L (0-33); Albumin Level 4.2 g/dL (3.5-5.2); Alkaline Phosphatase 75 U/L (35-105); Anion Gap 14.8 (5-19); Aspartate Amino Transferase 13 U/L (0-32); Blood Urea Nitrogen 11 mg/dL (6-20); Calcium 9.3 mg/dL (8.5-10.5); Carbon Dioxide 24 mmol/L (22-29); Chloride 103 mmol/L (98-107); Globulin 3.6 g/dL (1.3-4.6); Glomerular Filtration Rate 122.8 mL/min (90-130); Glucose 96 mg/dL (65-115); Lipase 34 U/L (13-60); Osmolality Calculated 285 mOsm/kg (285-295); Potassium 3.8 mmol/L (3.5-5.1); Sodium 138 mmol/L (136-145); Total Bilirubin 0.2 mg/dL (0.15-1.2); Total Protein 7.8 g/dL (6.6-8.7)
[2023-06-29] MEDS: iohexol 350 mg/mL 500 mL Btl (per mL) IV (23:16)
[2023-06-30 00:31] VITALS: BP 159/83; PULSE 106; RESP 18; TEMP 36.9; O2SAT 100
== END 2023-06-30 00:32 | disposition home or self-care (01) ==
PROVIDERS: Emergency Provider Emergency Medicine; PCP Family Medicine
DX: N83.201 Unspecified ovarian cyst, right side (principal); Z87.891 Personal history of nicotine dependence
CPT/HCPCS: 36415; 74177; 80053; 81001; 81025; 83690; 85025; 87086; 96361; 96374; 99285; J2405; J7030; Q9967

== ENCOUNTER 2023-07-04 13:53 | Emergency (ER) | payer MEDICAID, SELFPAY ==
[2023-07-04 14:09] VITALS: BP 122/80; PULSE 86; RESP 14; TEMP 37; O2SAT 100; BMI 35.7
[2023-07-04 14:13] VITALS: BP 116/68; PULSE 84; RESP 16; O2SAT 97
--- NOTE | 2023-07-04 14:19 | ED_ITS ---
HPI - Back Pain/Injury General: Chief Complaint: Back Pain/Injury Stated Complaint: Abd pain/ back pain Time Seen by Provider: 07/04/23 14:14 History of Present Illness: Patient presents to the ER with worsening right lower quadrant abdominal/pelvic pain. Patient was seen here approximately 5 days ago and got diagnosed with right ovarian cysts. Patient has not been able to follow-up with her PCP or AFTER SCHOOL PROGRAM DIRECTOR. This is the same pain she was having then only worse. Denies any nause a vomiting diarrhea, dysuria frequency urgency, fevers chills Review of Systems General: Reports: 10 or more systems reviewed and unremarkable except in HPI and below PFSH ED PFSH: Medical History (Updated 07/04/23 @ 15:40 by Seamus Thurman DO) Anxiety with depression Abnormal uterine bleeding (AUB) Surgical History No pertinent past surgical history Family History Family/Other Breast cancer, Onset Age: 75 maternal aunt Diabetes maternal aunt Grandmother Stroke maternal Diabetes Maternal grandmother Hypertension Maternal grandmother Mother Diabetes Hypertension Sister Ovarian cancer Denies family history of Colon cancer Clotting disorder Hyperlipidemia Chronic kidney disease (CKD) Anesthesia complication Family history of thyroid problem Bleeding disorder Uterine cancer Social History Smoking and tobacco/nicotine status: never used tobacco/nicotine Quit status (tobacco/nicotine): has quit using Year quit tobacco: 2018 Alcohol intake: never Substance/Drug Use: never Physical Exam 2 Const: COMMON NORMALS: no acute distress, average body habitus, patient oriented x3, no limitations, healthy appearing, alert and well nourished HENMT: COMMON NORMALS: normocephalic, atraumatic, hearing grossly normal bilaterally, external ears normal, EAC's normal, Normal external nose present and moist oral mucous membranes HEAD & SCALP: normocephalic and atraumatic NOSE: Normal external nose present EXTERNAL EAR: Yes external ears normal EXTERNAL AUDITORY CANAL: EAC's normal Neck/C-Spine: COMMON NORMALS: full ROM, no lymphadenopathy, supple, no meningeal signs, no JVD and Thyroid normal THYROID: Thyroid normal Chest: COMMONS NORMALS: normal inspection of the chest and normal palpation of entire chest wall Resp: COMMON NORMALS: normal respiratory effort, No retractions, No use of acc essory muscles and clear to auscultation bilaterally AUSCULTATION: clear to auscultation bilaterally Cardio: COMMON NORMALS: no JVD, regular rate, regular rhythm, S1 normal heart sound present, S2 normal heart sound present, No gallops present (Cardio), No clicks present (Cardio), No murmurs present (Cardio) and No rub (Cardio) RATE: regular rate RHYTHM: regular rhythm HEART SOUNDS: S1 normal heart sound present and S2 normal heart sound present GI: COMMON NORMALS: Normal to inspection, nondistended, normoactive bowel sounds present, Soft to palpation, No hepatosplenomegaly present and no masses; negative for non-tender (Tender to palpation right lower quadrant/pelvic area) PALPATION: Yes Soft to palpation and Yes No hepatosplenomegaly present Neuro: COMMON NORMALS: patient oriented x3 SENSORIUM/ORIENTATION: Yes alert MENINGEAL SIGNS: Yes no meningeal signs Course Vital Signs: Vital signs: Vital Signs Temperature 98.6 F 07/04/23 14:09 Pulse Rate 92 07/04/23 15:56 Respiratory Rate 16 07/04/23 15:56 Blood Pressure 112/76 07/04/23 15:56 Pulse Oximetry 100 07/04/23 15:56 Oxygen Delivery Me thod Room Air 07/04/23 14:13 MDM - Back Pain/Injury Medical Decision Making Patient received 60 mg Toradol IM which seemed to help the pain substantially. Patient be discharged on tramadol. Patient should follow-up with her PCP and AFTER SCHOOL PROGRAM DIRECTOR for further evaluation and treatment. Differential Diagnosis Unlikely lumbar radiculopathy, sciatica, strain of lumbar region, renal colic, pyelonephritis, thoracic back pain, AAA or discitis Medical Records I reviewed the patient's medical records. Labs I reviewed the patient's lab results. All radiology interpretation(s) finalized by discharge Discharge Plan Discharge Patient Disposition: Home Clinical Impression: Cyst of right ovary Condition: Stable Prescriptions: New tramadol 50 mg tablet 50 mg PO Q8H PRN (Reason: pain) Qty: 10 0RF No Action buspirone 10 mg tablet 10 mg PO TID phentermine 37.5 mg capsule 37.5 mg PO DAILY Rx Instructions: must administer 30 minutes before or 1-2 hours after breakfast Discharge Orders: Discharge ED (Routine); Ordered 07/04/23 Ordered By: Seamus Thurman Referrals: León Vences MD [Primary Care Provider] - 1 week Patient Instructions: Ovarian Cyst (ED) Activity Restrictions/Additional Instructions: Take your pain medicine as prescribed. Keep your follow-up appointment with your AFTER SCHOOL PROGRAM DIRECTOR and/or family practice doctor for definitive treatment. Coding Level of Care Code ED Transportation Clerk for Traci Quan
[2023-07-04] MEDS: ketorolac 60 mg/2 mL INJ IM (14:28)
[2023-07-04 15:56] VITALS: BP 112/76; PULSE 92; RESP 16; O2SAT 100
== END 2023-07-04 15:57 | disposition home or self-care (01) ==
PROVIDERS: Emergency Provider Emergency Medicine; PCP Family Medicine
DX: N83.201 Unspecified ovarian cyst, right side (principal); Z87.891 Personal history of nicotine dependence
CPT/HCPCS: 96372; 99284; J1885

== ENCOUNTER 2023-11-26 02:31 | Emergency (ER) | payer MEDICAID, SELFPAY ==
[2023-11-26] VITALS (11 sets, daily range): BP systolic 99–120; BP diastolic 51–67; PULSE 61–91; RESP 15–18; TEMP 36.8; O2SAT 95–100; BMI 37.8
--- NOTE | 2023-11-26 02:51 | ED_ITS ---
Documented by User: Gaby Rubin MD 11/26/23 02:52 HPI - Abdominal Pain 2 General: Chief Complaint: Abdominal Pain Stated Complaint: low abd pain/low back pain Time Seen by Provider: 11/26/23 02:36 History of Present Illness: Patient says she woke up about midnight with abdominal pain. She is complaining of periumbilical pain that it 1 point radiated to her right side and also has been hurting into her low back. She says pain in her back feels like contractions. She had some nausea and vomiting. No fever. No dysuria. No altered mental status. No chest pain. Related Data: Date of Last Menstrual Period: 11/07/23 Review of Systems 2 Narrative: Constitutional symptoms: Negative except as documented in HPI. Skin symptoms: Negative except as documented in HPI. Eye symptoms: Negative except as documented in HPI. ENMT symptoms: Negative except as documented in HPI. Respiratory symptoms: Negative except as documented in HPI. Cardiovascular symptoms: Negative except as documented in HPI. Gastrointestinal symptoms: Negative except as documented in HPI. Genitourinary symptoms: Negative except as documented in HPI. Musculoskeletal symptoms: Negative except as documented in HPI. Neurologic symptoms: Negative except as documented in HPI. Psychiatric symptoms: Negative except as documented in HPI. Endocrine symptoms: Negative except as documented in HPI. PFSH ED 2 PFSH: Medical History (Updated 11/26/23 @ 08:58 by Aubrey Arredondo DO) Anxiety with depression Abnormal uterine bleeding (AUB) Surgical History No pertinent past surgical history Family History Family/Other Breast cancer, Onset Age: 75 maternal aunt Diabetes maternal aunt Grandmother Stroke maternal Diabetes Maternal grandmother Hypertension Maternal grandmother Mother Diabetes Hypertension Sister Ovarian cancer Denies family history of Colon cancer Clotting disorder Hyperlipidemia Chronic kidney disease (CKD) Anesthesia complication Family history of thyroid problem Bleeding disorder Uterine cancer Social History Smoking and tobacco/nicotine status: never used tobacco/nicotine Quit status (tobacco/nicotine): has quit using Year quit tobacco: 2018 Alcohol intake: never Substance/Drug Use: never Female Reproductive History: Date of last menstrual period: 11/07/23 Physical Exam 2 Narrative: EXAM NARRATIVE: General: Alert, no acute distress. Skin: Warm, dry. Head: Normocephalic, atraumatic. Neck: Supple, trachea midline. Eye: Extraocular movements are intact. Ears, nose, mouth and throat: mucosa moist. Cardiovascular: Regular, Normal peripheral perfusion. Respiratory: Lungs are clear to auscultation, respirations are non-labored, breath sounds are equal, Symmetrical chest wall expansion. Gastrointestinal: Soft, tenderness in the central abdominal region, rather nonfocal, Non distended, Normal bowel sounds. Musculoskeletal: Normal ROM, no deformity. Neurological: Alert and oriented, No focal neurological deficit observed. Psychiatric: Cooperative, appropriate mood & affect. Course 2 Vital Signs: Vital signs: Vital Signs Temperature 98.2 F 11/26/23 02:37 Pulse Rate 61 11/26/23 09:12 Respiratory Rate 15 11/26/23 06:30 Blood Pressure 108/55 11/26/23 09:12 Pulse Oximetry 98 11/26/23 06:30 Oxygen Delivery Me thod Room Air 11/26/23 06:30 MDM - Abdominal Pain Lab Data 11/26/23 03:11 11/26/23 03:11 Labs/Radiology: Radiology Impressions Abdomen/Pelvis CT 11/26/23 04:33 IMPRESSION: 1. Mild stomach distension without significant inflammatory changes, may represent gastroenteritis. 2. Borderline hypertrophic bilateral ovaries, nonspecific, can be seen in PCOS. Outpatient ultrasound can be obtained for further assessment. This finding is stable from study performed on 11/19/2022. Laboratory Results WBC 9.99 10^3/uL (3.29-11.43) 11/26/23 03:11 RBC 4.37 10^6/uL (3.85-5.65) 11/26/23 03:11 Hgb 11.50 g/dL (11.27-16.99) 11/26/23 03:11 Hct 34.7 % (36-47) L 11/26/23 03:11 MCV 79.4 fl (85-98) L 11/26/23 03:11 MCH 26.3 pg (27-33) L 11/26/23 03:11 MCHC 33.1 g/dL (30-55) 11/26/23 03:11 RDW 12.7 % (12.1-15.1) 11/26/23 03:11 Plt Count 274 10^3/cmm (157-399) 11/26/23 03:11 MPV 9.8 fL (7.4-10.4) 11/26/23 03:11 Neut % (Auto) 65.0 % 11/26/23 03:11 Lymph % (Auto) 26.0 % 11/26/23 03:11 Perry % (Auto) 6.7 % 11/26/23 03:11 Eos % (Auto) 1.7 % 11/26/23 03:11 Baso % (Auto) 0.4 % 11/26/23 03:11 Neut # (Auto) 6.49 10^3/uL (1.8-7.7) 11/26/23 03:11 Lymph # (Auto) 2.6 10^3/uL (0.8-4.8) 11/26/23 03:11 Perry # (Auto) 0.7 10^3/uL (0.2-0.9) 11/26/23 03:11 Eos # (Auto) 0.2 10^3/uL (0.0-0.8) 11/26/23 03:11 Baso # (Auto) 0.0 10^3/uL (0.0-0.1) 11/26/23 03:11 Nucleated RBC % (auto) 0 % 11/26/23 03:11 Nucleated RBCs # 0.0 /100WBC 11/26/23 03:11 Sodium 140 mmol/L (136-145) 11/26/23 03:11 Potassium 3.8 mmol/L (3.5-5.1) 11/26/23 03:11 Chloride 104 mmol/L (98-107) 11/26/23 03:11 Carbon Dioxide 27 mmol/L (22-29) 11/26/23 03:11 Anion Gap 12.8 (5-19) 11/26/23 03:11 BUN 10 mg/dL (6-20) 11/26/23 03:11 Creatinine 0.6 mg/dL (0.5-0.9) 11/26/23 03:11 GFR Calculation 122.8 mL/min (90-130) 11/26/23 03:11 Glucose 111 mg/dL (65-115) 11/26/23 03:11 Calculated Osmolality 290 mOsm/kg (285-295) 11/26/23 03:11 Lactic Acid 0.9 mmol/L (0.5-2.2) 11/26/23 03:11 Calcium 8.9 mg/dL (8.5-10.5) 11/26/23 03:11 Total Bilirubin 0.2 mg/dL (0.15-1.2) 11/26/23 03:11 AST 9 U/L (0-32) 11/26/23 03:11 ALT 9 U/L (0-33) 11/26/23 03:11 Alkaline Phosphatase 69 U/L (35-105) 11/26/23 03:11 C-Reactive Protein 4.0 mg/L (0.0-4.9) 11/26/23 03:11 Total Protein 7.4 g/dL (6.6-8.7) 11/26/23 03:11 Albumin 4.1 g/dL (3.5-5.2) 11/26/23 03:11 Globulin 3.3 g/dL (1.3-4.6) 11/26/23 03:11 HCG, Qual Negative (Negative) 11/26/23 03:11 Urine Color Yellow (Yellow) 11/26/23 04:31 Urine Appearance Slightly cloudy (CLEAR) 11/26/23 04:31 Urine pH 7 (5-7) 11/26/23 04:31 Ur Specific Cap[place] 1.015 (1.005-1.030) 11/26/23 04:31 Urine Protein Neg (Negative) 11/26/23 04:31 Urine Glucose (UA) Norm (Normal) 11/26/23 04:31 Urine Ketones Negative (Negative) 11/26/23 04:31 Urine Blood Neg (Negative) 11/26/23 04:31 Urine Nitrate Negative (Negative) 11/26/23 04:31 Urine Bilirubin Neg (Negative) 11/26/23 04:31 Urine Urobilinogen Neg mg/dL (Negative) 11/26/23 04:31 Ur Leukocyte Esterase Negative (Negative) 11/26/23 04:31 Urine RBC 0-4 /hpf (0-2) H 11/26/23 04:31 Urine WBC None /hpf (0-5) 11/26/23 04:31 Ur Squamous Epith Cells 15-25 /hpf (0-5) H 11/26/23 04:31 Amorphous Sediment Not Reportable 11/26/23 04:31 Urine Bacteria Trace /hpf (NONE) 11/26/23 04:31 Urine Mucus 1+ /hpf 11/26/23 04:31 Discharge Plan Discharge Patient Disposition: Home Clinical Impression: Abdominal pain, Biliary colic Condition: Stable Prescriptions: New pantoprazole 40 mg tablet,delayed release (DR/EC) 40 mg PO BID 10 Days Qty: 40 0RF Rx Instructions: 1 pill twice daily for 10 days then once daily No Action phentermine 37.5 mg capsule 37.5 mg PO DAILY Rx Instructions: must administer 30 minutes before or 1-2 hours after breakfast levothyroxine 75 mcg tablet 75 mcg PO QAM Discharge Orders: Discharge ED (Routine); Ordered 11/26/23 Ordered By: Aubrey Arredondo Referrals: León Vences MD [Primary Care Provider] - Discharge Diet: Clear Liquid Discharge Activity: Increase activity as tolerated Patient Instructions: Abdominal Pain (ED), Opioid Safety, Pain Management Activity Restrictions/Additional Instructions: Thank you for choosing [facility] for your healthcare needs today. It is very important that you follow up as instructed or that you return to the Emergency Department should you have concerns or if your condition changes or worsens in any way. Follow-up with your primary care doctor within the next 7 to 10 days. Review your history and recent visits with him for consideration of further evaluation Coding Level of Care Code ED Food Technologist for Chg Fwd Documented by User: Aubrey Arredondo DO 11/26/23 09:47 HPI - Abdominal Pain 2 General: Chief Complaint: Abdominal Pain Stated Complaint: low abd pain/low back pain Time Seen by Provider: 11/26/23 02:36 PFS ED 2 PFSH: Medical History (Updated 11/26/23 @ 08:58 by Aubrey Arredondo DO) Anxiety with depression Abnormal uterine bleeding (AUB) Surgical History No pertinent past surgical history Family History Family/Other Breast cancer, Onset Age: 75 maternal aunt Diabetes maternal aunt Grandmother Stroke maternal Diabetes Maternal grandmother Hypertension Maternal grandmother Mother Diabetes Hypertension Sister Ovarian cancer Denies family history of Colon cancer Clotting disorder Hyperlipidemia Chronic kidney disease (CKD) Anesthesia complication Family history of thyroid problem Bleeding disorder Uterine cancer Social History Smoking and tobacco/nicotine status: never used tobacco/nicotine Quit status (tobacco/nicotine): has quit using Year quit tobacco: 2018 Alcohol intake: never Substance/Drug Use: never Course 2 Vital Signs: Vital signs: Vital Signs Temperature 98.2 F 11/26/23 02:37 Pulse Rate 61 11/26/23 09:12 Respiratory Rate 15 11/26/23 06:30 Blood Pressure 108/55 11/26/23 09:12 Pulse Oximetry 98 11/26/23 06:30 Oxygen Delivery Me thod Room Air 11/26/23 06:30 MDM - Abdominal Pain Medical Decision Making Care assumed at change of shift. CT is negative symptoms have resolved. In talking with patient she has had similar episodes previously. She describes a kind of periumbilical [place] supraumbilical pain radiating into the right upper quadrant and into her back. She has had other episodes like this that were not nearly as intense as this episode. They usually resolve spontaneously. She has not associated with any particular foods. Suspicious of patient having biliary colic. Her liver enzymes today were negative CT did not show any significant abnormalities. Recommend clear liquid diet for the next 24 to 48 hours and advance as tolerated discussed with her foods that recommend that she follow-up with her primary care doctor for further possible evaluation including potential including evaluation for biliary dyskinesia with HIDA scan. We did give her proton pump inhibitor today. Medical Records I reviewed the patient's medical records. Lab Data I reviewed the patient's lab results. 11/26/23 03:11 11/26/23 03:11 Labs/Radiology: Radiology Impressions Abdomen/Pelvis CT 11/26/23 04:33 IMPRESSION: 1. Mild stomach distension without significant inflammatory changes, may represent gastroenteritis. 2. Borderline hypertrophic bilateral ovaries, nonspecific, can be seen in PCOS. Outpatient ultrasound can be obtained for further assessment. This finding is stable from study performed on 11/19/2022. Laboratory Results WBC 9.99 10^3/uL (3.29-11.43) 11/26/23 03:11 RBC 4.37 10^6/uL (3.85-5.65) 11/26/23 03:11 Hgb 11.50 g/dL (11.27-16.99) 11/26/23 03:11 Hct 34.7 % (36-47) L 11/26/23 03:11 MCV 79.4 fl (85-98) L 11/26/23 03:11 MCH 26.3 pg (27-33) L 11/26/23 03:11 MCHC 33.1 g/dL (30-55) 11/26/23 03:11 RDW 12.7 % (12.1-15.1) 11/26/23 03:11 Plt Count 274 10^3/cmm (157-399) 11/26/23 03:11 MPV 9.8 fL (7.4-10.4) 11/26/23 03:11 Neut % (Auto) 65.0 % 11/26/23 03:11 Lymph % (Auto) 26.0 % 11/26/23 03:11 Perry % (Auto) 6.7 % 11/26/23 03:11 Eos % (Auto) 1.7 % 11/26/23 03:11 Baso % (Auto) 0.4 % 11/26/23 03:11 Neut # (Auto) 6.49 10^3/uL (1.8-7.7) 11/26/23 03:11 Lymph # (Auto) 2.6 10^3/uL (0.8-4.8) 11/26/23 03:11 Perry # (Auto) 0.7 10^3/uL (0.2-0.9) 11/26/23 03:11 Eos # (Auto) 0.2 10^3/uL (0.0-0.8) 11/26/23 03:11 Baso # (Auto) 0.0 10^3/uL (0.0-0.1) 11/26/23 03:11 Nucleated RBC % (auto) 0 % 11/26/23 03:11 Nucleated RBCs # 0.0 /100WBC 11/26/23 03:11 Sodium 140 mmol/L (136-145) 11/26/23 03:11 Potassium 3.8 mmol/L (3.5-5.1) 11/26/23 03:11 Chloride 104 mmol/L (98-107) 11/26/23 03:11 Carbon Dioxide 27 mmol/L (22-29) 11/26/23 03:11 Anion Gap 12.8 (5-19) 11/26/23 03:11 BUN 10 mg/dL (6-20) 11/26/23 03:11 Creatinine 0.6 mg/dL (0.5-0.9) 11/26/23 03:11 GFR Calculation 122.8 mL/min (90-130) 11/26/23 03:11 Glucose 111 mg/dL (65-115) 11/26/23 03:11 Calculated Osmolality 290 mOsm/kg (285-295) 11/26/23 03:11 Lactic Acid 0.9 mmol/L (0.5-2.2) 11/26/23 03:11 Calcium 8.9 mg/dL (8.5-10.5) 11/26/23 03:11 Total Bilirubin 0.2 mg/dL (0.15-1.2) 11/26/23 03:11 AST 9 U/L (0-32) 11/26/23 03:11 ALT 9 U/L (0-33) 11/26/23 03:11 Alkaline Phosphatase 69 U/L (35-105) 11/26/23 03:11 C-Reactive Protein 4.0 mg/L (0.0-4.9) 11/26/23 03:11 Total Protein 7.4 g/dL (6.6-8.7) 11/26/23 03:11 Albumin 4.1 g/dL (3.5-5.2) 11/26/23 03:11 Globulin 3.3 g/dL (1.3-4.6) 11/26/23 03:11 HCG, Qual Negative (Negative) 11/26/23 03:11 Urine Color Yellow (Yellow) 11/26/23 04:31 Urine Appearance Slightly cloudy (CLEAR) 11/26/23 04:31 Urine pH 7 (5-7) 11/26/23 04:31 Ur Specific Cap[place] 1.015 (1.005-1.030) 11/26/23 04:31 Urine Protein Neg (Negative) 11/26/23 04:31 Urine Glucose (UA) Norm (Normal) 11/26/23 04:31 Urine Ketones Negative (Negative) 11/26/23 04:31 Urine Blood Neg (Negative) 11/26/23 04:31 Urine Nitrate Negative (Negative) 11/26/23 04:31 Urine Bilirubin Neg (Negative) 11/26/23 04:31 Urine Urobilinogen Neg mg/dL (Negative) 11/26/23 04:31 Ur Leukocyte Esterase Negative (Negative) 11/26/23 04:31 Urine RBC 0-4 /hpf (0-2) H 11/26/23 04:31 Urine WBC None /hpf (0-5) 11/26/23 04:31 Ur Squamous Epith Cells 15-25 /hpf (0-5) H 11/26/23 04:31 Amorphous Sediment Not Reportable 11/26/23 04:31 Urine Bacteria Trace /hpf (NONE) 11/26/23 04:31 Urine Mucus 1+ /hpf 11/26/23 04:31 All radiology interpretation(s) finalized by discharge Discharge Plan Discharge Patient Disposition: Home Clinical Impression: Abdominal pain, Biliary colic Condition: Stable Prescriptions: New pantoprazole 40 mg tablet,delayed release (DR/EC) 40 mg PO BID 10 Days Qty: 40 0RF Rx Instructions: 1 pill twice daily for 10 days then once daily No Action phentermine 37.5 mg capsule 37.5 mg PO DAILY Rx Instructions: must administer 30 minutes before or 1-2 hours after breakfast levothyroxine 75 mcg tablet 75 mcg PO QAM Discharge Orders: Discharge ED (Routine); Ordered 11/26/23 Ordered By: Aubrey Arredondo Referrals: León Vences MD [Primary Care Provider] - Discharge Diet: Clear Liquid Discharge Activity: Increase activity as tolerated Patient Instructions: Abdominal Pain (ED), Opioid Safety, Pain Management Activity Restrictions/Additional Instructions: Thank you for choosing [facility] for your healthcare needs today. It is very important that you follow up as instructed or that you return to the Emergency Department should you have concerns or if your condition changes or worsens in any way. Follow-up with your primary care doctor within the next 7 to 10 days. Review your history and recent visits with him for consideration of further evaluation Coding Level of Care Code ED Food Technologist for Traci Quan
[2023-11-26 03:20] LABS: Basophils % 0.4 %; Eosinophils # 0.2 10^3/uL (0.0-0.8); Eosinophils % 1.7 %; Hematocrit 34.7 % (36-47); Lymphocytes # 2.6 10^3/uL (0.8-4.8); Mean Corpuscular HGB Conc 33.1 g/dL (30-55); Mean Corpuscular Hemoglobin 26.3 pg (27-33); Mean Corpuscular Volume 79.4 fl (85-98); Mean Platelet Volume 9.8 fL (7.4-10.4); Monocytes # 0.7 10^3/uL (0.2-0.9); Monocytes % 6.7 %; Neutrophils # 6.49 10^3/uL (1.8-7.7); Nucleated Red Blood Cells % 0 %; Platelet Count 274 10^3/cmm (157-399); Red Blood Count 4.37 10^6/uL (3.85-5.65); Red Cell Distribution Width 12.7 % (12.1-15.1); White Blood Count 9.99 10^3/uL (3.29-11.43)
[2023-11-26] MEDS: ondansetron 2 mg/ML SDV 2 mL 4 MG IVP (03:22)
[2023-11-26] MEDS: ketorolac 30 mg/mL INJ IVP (03:23)
[2023-11-26] MEDS: sodium chloride 0.9% 1,000 ML 999 ML IV (03:23)
[2023-11-26 03:42] LABS: Lactic Sepsis W/Reflex 0.9 mmol/L (0.5-2.2)
[2023-11-26 03:43] LABS: Alanine Aminotransferase 9 U/L (0-33); Albumin Level 4.1 g/dL (3.5-5.2); Alkaline Phosphatase 69 U/L (35-105); Anion Gap 12.8 (5-19); Aspartate Amino Transferase 9 U/L (0-32); Blood Urea Nitrogen 10 mg/dL (6-20); Calcium 8.9 mg/dL (8.5-10.5); Carbon Dioxide 27 mmol/L (22-29); Chloride 104 mmol/L (98-107); Creatinine Clr Calc Pharmacy 166.0132; Globulin 3.3 g/dL (1.3-4.6); Glomerular Filtration Rate 122.8 mL/min (90-130); Glucose 111 mg/dL (65-115); Osmolality Calculated 290 mOsm/kg (285-295); Potassium 3.8 mmol/L (3.5-5.1); Sodium 140 mmol/L (136-145); Total Bilirubin 0.2 mg/dL (0.15-1.2); Total Protein 7.4 g/dL (6.6-8.7)
--- NOTE | 2023-11-26 04:33 | CTR_ITS ---
PROCEDURE INFORMATION: Exam: CT Abdomen And Pelvis With Contrast Exam date and time: 11/26/2023 5:00 AM Age: 23 years old Clinical indication: Abdominal tenderness; Additional info: Abdominal pain and vomiting TECHNIQUE: Imaging protocol: Computed tomography of the abdomen and pelvis with contrast. Radiation optimization: All CT scans at this facility use at least one of these dose optimization techniques: automated exposure control; mA and/or kV adjustment per patient size (includes targeted exams where dose is matched to clinical indication); or iterative reconstruction. Contrast material: OMNI 350; Contrast volume: 100 ml; Contrast route: INTRAVENOUS (IV); COMPARISON: 1. CT abdomen pelvis w con* [id number] 06/29/2023 11:[address] of the abdomen and pelvis performed on 11/19/2022. RADIATION DOSE METRICS: Total DLP (mGy-cm): 924.7 FINDINGS: Lungs: Lung bases are clear as visualized. Heart: Base of heart is unremarkable as visualized. Liver: Normal. No mass. Gallbladder and bile ducts: Normal. No calcified stones. No ductal dilation. Pancreas: Normal. No ductal dilation. Spleen: Normal. No splenomegaly. Adrenal glands: Normal. No mass. Kidneys and ureters: Normal. No hydronephrosis. Stomach and bowel: Mild stomach distension. Appendix: No evidence of appendicitis. Intraperitoneal space: Unremarkable. No free air. No significant fluid collection. Vasculature: Unremarkable. No abdominal aortic aneurysm. Lymph nodes: Unremarkable. No enlarged lymph nodes. Urinary bladder: Unremarkable as visualized. Reproductive: Right adnexal physiologic cyst. Prominence of the bilateral ovaries. Bones/joints: Unremarkable. No acute fracture. Soft tissues: Unremarkable. CT/CT abdomen pelvis w con* [id number] IMPRESSION: 1. Mild stomach distension without significant inflammatory changes, may represent gastroenteritis. 2. Borderline hypertrophic bilateral ovaries, nonspecific, can be seen in PCOS. Outpatient ultrasound can be obtained for further assessment. This finding is stable from study performed on 11/19/2022.
[2023-11-26 04:43] LABS: Bilirubin Urine Neg (Negative); Blood Urine Neg (Negative); Glucose Urine UA Norm (Normal); Ketones Urine Negative (Negative); Leukocyte Esterase Urine Negative (Negative); Nitrate Urine Negative (Negative); Protein Urine Neg (Negative); RBC Urine 0-4 /hpf (0-2); Specific Gravity, Urine 1.015 (1.005-1.030); Squamous Epithelial Cell Urine 15-25 /hpf (0-5); Urine Appearance Slightly Cloudy (CLEAR); Urine Color Yellow (Yellow); Urobilinogen Urine Neg (Negative); pH Urine 7 (5-7)
[2023-11-26 04:44] LABS: Add Urine Culture? No; Bacteria Urine TRACE /hpf; Mucus Urine 1+ /hpf
[2023-11-26 04:52] LABS: HCG, Serum Qual Negative (Negative)
[2023-11-26] MEDS: iohexol 350 mg/mL 500 mL Btl (per mL) IV (05:10)
== END 2023-11-26 09:13 | disposition home or self-care (01) ==
PROVIDERS: Emergency Medicine; Emergency Provider Family Medicine; PCP Family Medicine
DX: K80.50 Calculus of bile duct without cholangitis or cholecystitis without obstruction (principal); Z87.891 Personal history of nicotine dependence; R10.33 Periumbilical pain
CPT/HCPCS: 74177; 80053; 81001; 83605; 84703; 85025; 86140; 96361; 96374; 96375; 99285; J1885; J2405; J7030; Q9967

== ENCOUNTER 2023-11-28 00:33 | Emergency (ER) | payer MEDICAID, SELFPAY ==
[2023-11-28 00:36] VITALS: BP 115/84; PULSE 82; RESP 16; TEMP 36.6; O2SAT 100; BMI 37.5
[2023-11-28 01:14] VITALS: BP 132/81; PULSE 85; RESP 15; O2SAT 100
--- NOTE | 2023-11-28 01:36 | ED_ITS ---
HPI - Abdominal Pain 2 General: Chief Complaint: Abdominal Pain Stated Complaint: lower right abd pain back pain passed out Time Seen by Provider: 11/28/23 01:10 History of Present Illness: 23-year-old female seen 2 days ago for r ight-sided abdominal discomfort. She says her pain has been ongoing, and pretty constant. She was at work last night, and had significant ongoing pain. She felt faint, she believes she passed out for about 15 seconds or so. She was caught by a work colleague and put in a wheelchair. She vomited once. Prior to that, she had not vomited in a couple of days. No fever. No diarrhea. Only surgical history is 1 Associated Symptoms: Denies chills and fever(s) Related Data: Date of Last Menstrual Period: 11/09/23 Review of Systems 2 Const: Denies: fever(s), chills or body aches Eyes: Denies: change in vision Card: Denies: chest pain or palpitations Resp: Denies: dyspnea, productive cough, non-productive cough or wheezing : Denies: difficulty voiding Skin/Breast: Denies: rash Neuro: Reports: dizziness; Denies: headache(s), confusion or seizure-like activity PFSH ED 2 PFSH: Medical History (Updated 11/28/23 @ 02:45 by Seamus Platt DO) Anxiety with depression Abnormal uterine bleeding (AUB) Surgical History No pertinent past surgical history Family History Family/Other Breast cancer, Onset Age: 75 maternal aunt Diabetes maternal aunt Grandmother Stroke maternal Diabetes Maternal grandmother Hypertension Maternal grandmother Mother Diabetes Hypertension Sister Ovarian cancer Denies family history of Colon cancer Clotting disorder Hyperlipidemia Chronic kidney disease (CKD) Anesthesia complication Family history of thyroid problem Bleeding disorder Uterine cancer Social History Smoking and tobacco/nicotine status: never used tobacco/nicotine Quit status (tobacco/nicotine): has quit using Year quit tobacco: 2018 Alcohol intake: never Substance/Drug Use: never Female Reproductive History: Date of last menstrual period: 11/09/23 Physical Exam 2 Const: COMMON NORMALS: no acute distress GENERAL APPEARANCE: cooperative; not ill appearing and not frail appearing HENMT: COMMON NORMALS: normocephalic, atraumatic and Normal external nose present HEAD & SCALP: normocephalic and atraumatic FACE & SINUS: normal facial exam and face symmetric NOSE: Normal external nose present Eye: COMMON NORMALS: Equal, round and reactive pupils present and EOMs intact bilaterally PUPIL: Yes Equal, round and reactive pupils present Neck/C-Spine: GENERAL: Yes trachea midline Chest: CHEST: Yes Symmetrical chest wall rise Resp: COMMON NORMALS: normal respiratory effort, No retractions, No use of accessory muscles and clear to auscultation bilaterally AUSCULTATION: clear to auscultation bilaterally Cardio: COMMON NORMALS: regular rate and regular rhythm RATE: regular rate RHYTHM: regular rhythm GI: COMMON NORMALS: Normal to inspection, nondistended, normoactive bowel sounds present PALPATION: Yes Tenderness to palpation present (GI) Details: RLQ and RUQ and Yes Guarding due to palpation present (GI) Extremity: COMMON NORMALS: no pedal edema Neuro: VIN COMA SCALE: document GCS findings Vin coma scale eye opening: Spontaneous [place] coma scale verbal response: Orientated [place] coma scale motor response: Obey commands [place] coma scale total score: 15 S ENSORY EXAM: Yes extremities (intact) Psych: COMMON NORMALS: speech normal SPEECH: Yes normal speech Skin: COMMON NORMALS: no rashes or lesions noted GENERAL SKIN EXAM: no rashes or lesions noted Course 2 Vital Signs: Vital signs: Vital Signs Temperature 97.9 F 11/28/23 00:36 Pulse Rate 82 11/28/23 00:36 Respiratory Rate 16 11/28/23 02:20 Blood Pressure 115/84 11/28/23 00:36 Pulse Oximetry 98 11/28/23 02:20 Oxygen Delivery Me thod Room Air 11/28/23 00:36 MDM - Abdominal Pain Medical Decision Making White blood cell count is 11. CRP is 4.8. Hemoglobin is 11. hCG is negative. Lipase is normal. Liver enzymes are normal. She is tender over the right lower quadrant and right flank. CT from 2 days ago reveals no evidence of appendicitis. Ultrasound of the pelvis is done this evening showing blood flow to the ovary. There is a 3 cm cyst present. No fluid in the cul-de-sac. She will be treated for ovarian cyst. Close outpatient follow-up with her doctor next week. Lab Data 11/28/23 01:45 11/28/23 01:45 Labs/Radiology: Laboratory Results WBC 10.58 10^3/uL (3.29-11.43) 11/28/23 01:45 RBC 4.26 10^6/uL (3.85-5.65) 11/28/23 01:45 Hgb 11.20 g/dL (11.27-16.99) L 11/28/23 01:45 Hct 34.2 % (36-47) L 11/28/23 01:45 MCV 80.3 fl (85-98) L 11/28/23 01:45 MCH 26.3 pg (27-33) L 11/28/23 01:45 MCHC 32.7 g/dL (30-55) 11/28/23 01:45 RDW 13.1 % (12.1-15.1) 11/28/23 01:45 Plt Count 271 10^3/cmm (157-399) 11/28/23 01:45 MPV 9.8 fL (7.4-10.4) 11/28/23 01:45 Neut % (Auto) 63.6 % 11/28/23 01:45 Lymph % (Auto) 28.0 % 11/28/23 01:45 [place] % (Auto) 6.8 % 11/28/23 01:45 Eos % (Auto) 1.1 % 11/28/23 01:45 Baso % (Auto) 0.4 % 11/28/23 01:45 Neut # (Auto) 6.73 10^3/uL (1.8-7.7) 11/28/23 01:45 Lymph # (Auto) 3.0 10^3/uL (0.8-4.8) 11/28/23 01:45 [place] # (Auto) 0.7 10^3/uL (0.2-0.9) 11/28/23 01:45 Eos # (Auto) 0.1 10^3/uL (0.0-0.8) 11/28/23 01:45 Baso # (Auto) 0.0 10^3/uL (0.0-0.1) 11/28/23 01:45 Nucleated RBC % (auto) 0 % 11/28/23 01:45 Nucleated RBCs # 0.0 /100WBC 11/28/23 01:45 Sodium 143 mmol/L (136-145) 11/28/23 01:45 Potassium 3.5 mmol/L (3.5-5.1) 11/28/23 01:45 Chloride 107 mmol/L (98-107) 11/28/23 01:45 Carbon Dioxide 26 mmol/L (22-29) 11/28/23 01:45 Anion Gap 13.5 (5-19) 11/28/23 01:45 BUN 7 mg/dL (6-20) 11/28/23 01:45 Creatinine 0.7 mg/dL (0.5-0.9) 11/28/23 01:45 GFR Calculation 102.8 mL/min (90-130) 11/28/23 01:45 Glucose 85 mg/dL (65-115) 11/28/23 01:45 Calculated Osmolality 293 mOsm/kg (285-295) 11/28/23 01:45 Calcium 8.9 mg/dL (8.5-10.5) 11/28/23 01:45 Total Bilirubin 0.2 mg/dL (0.15-1.2) 11/28/23 01:45 AST 10 U/L (0-32) 11/28/23 01:45 ALT 9 U/L (0-33) 11/28/23 01:45 Alkaline Phosphatase 68 U/L (35-105) 11/28/23 01:45 Creatine Kinase 75 U/L (26-192) 11/28/23 01:45 C-Reactive Protein 4.8 mg/L (0.0-4.9) 11/28/23 01:45 Total Protein 7.4 g/dL (6.6-8.7) 11/28/23 01:45 Albumin 4.1 g/dL (3.5-5.2) 11/28/23 01:45 Globulin 3.3 g/dL (1.3-4.6) 11/28/23 01:45 Lipase 30 U/L (13-60) 11/28/23 01:45 HCG, Qual Negative (Negative) 11/28/23 01:45 All radiology interpretation(s) finalized by discharge Discharge Plan Discharge Patient Disposition: Home Clinical Impression: Ovarian cyst Qualifiers: Laterality: right Qualified Code(s): N83.201 - Unspecified ovarian cyst, right side Condition: Stable Prescriptions: New ketorolac 10 mg tablet 10 mg PO TID PRN (Reason: pain) Qty: 10 0RF ondansetron 4 mg tablet,disintegrating 4 mg PO Q6H PRN (Reason: nausea and vomiting) Qty: 14 0RF No Action phentermine 37.5 mg capsule 37.5 mg PO DAILY Rx Instructions: must administer 30 minutes before or 1-2 hours after breakfast levothyroxine 75 mcg tablet 75 mcg PO QAM pantoprazole 40 mg tablet,delayed release (DR/EC) 40 mg PO BID 10 Days Qty: 40 0RF Rx Instructions: 1 pill twice daily for 10 days then once daily Discharge Orders: Discharge ED (Routine); Ordered 11/28/23 Ordered By: Seamus Platt Referrals: León Vences MD [Primary Care Provider] - 1-3 days Patient Instructions: Ovarian Cyst (ED), Opioid Safety, Pain Management Activity Restrictions/Additional Instructions: Return for fever greater than 100, vomiting liquids or medications, worsening pain despite treatment, other concerning symptoms. Take medication scheduled for the next 36 hours, then as needed following that. See your doctor this week. Coding Level of Care Code ED Heating And Blending Supervisor for Traci Quan
[2023-11-28 01:49] LABS: Basophils % 0.4 %; Eosinophils # 0.1 10^3/uL (0.0-0.8); Eosinophils % 1.1 %; Hematocrit 34.2 % (36-47); Mean Corpuscular HGB Conc 32.7 g/dL (30-55); Mean Corpuscular Hemoglobin 26.3 pg (27-33); Mean Corpuscular Volume 80.3 fl (85-98); Mean Platelet Volume 9.8 fL (7.4-10.4); Monocytes # 0.7 10^3/uL (0.2-0.9); Monocytes % 6.8 %; Neutrophils # 6.73 10^3/uL (1.8-7.7); Neutrophils % 63.6 %; Nucleated Red Blood Cells % 0 %; Platelet Count 271 10^3/cmm (157-399); Red Blood Count 4.26 10^6/uL (3.85-5.65); Red Cell Distribution Width 13.1 % (12.1-15.1); White Blood Count 10.58 10^3/uL (3.29-11.43)
--- NOTE | 2023-11-28 01:52 | USR_ITS ---
PROCEDURE INFORMATION: Exam: US Pelvis Complete, Transabdominal and US Duplex Artery or Vein, Ovaries, Limited Exam date and time: 11/28/2023 2:11 AM Age: 23 years old Clinical indication: Pelvic pain; Prior surgery; Surgery date: 6+ months; Surgery type: HX of c section; Additional info: Rlq pain. TECHNIQUE: Imaging protocol: Real-time transabdominal pelvic ultrasound (non-obstetric) with image documentation. Real-time duplex ultrasound scan of the arterial or venous flow of the ovaries with B-mode, color Doppler flow and spectral waveform analysis. Complete pelvic ultrasound. Limited duplex. Duplex exam was performed to evaluate for torsion and other vascular conditions. COMPARISON: CT abdomen pelvis w con* [id number] 11/26/2023 5:00 AM FINDINGS: Uterus: Uterus appears unremarkable. No discrete fibroid or endometrial polyp identified. Uterus measures 10.5 x 6.0 x 4.7 cm. Endometrial stripe is within normal limits, measuring 12 mm. Right ovary/adnexa: Small simple cyst versus dominant follicle, measuring 1.6 x 1.8 x 2.9 cm. Otherwise unremarkable. No evidence of torsion. Normal arterial and venous waveforms on duplex. Measures 3.8 x 3.8 x 3.2 cm. Left ovary/adnexa: Normal ovary. No mass. No evidence of torsion. Normal arterial and venous waveforms on duplex. Measures 2.9 x 3.1 x 3.0 cm. Intraperitoneal space: No free fluid. Urinary bladder: Normal. US/US pelvic complete* [id number] IMPRESSION: 1. No acute findings. 2. A 1.6 x 1.8 x 2.9 cm simple cyst versus dominant follicle in the right ovary. No routine follow-up needed. 3. Endometrial stripe measures 12 mm.
[2023-11-28 02:01] LABS: HCG, Serum Qual Negative (Negative)
[2023-11-28 02:10] LABS: Alanine Aminotransferase 9 U/L (0-33); Albumin Level 4.1 g/dL (3.5-5.2); Alkaline Phosphatase 68 U/L (35-105); Anion Gap 13.5 (5-19); Aspartate Amino Transferase 10 U/L (0-32); Blood Urea Nitrogen 7 mg/dL (6-20); C Reactive Protein 4.8 mg/L (0.0-4.9); Calcium 8.9 mg/dL (8.5-10.5); Carbon Dioxide 26 mmol/L (22-29); Chloride 107 mmol/L (98-107); Creatine Phosphokinase 75 U/L (26-192); Creatinine Clr Calc Pharmacy 141.9425; Globulin 3.3 g/dL (1.3-4.6); Glomerular Filtration Rate 102.8 mL/min (90-130); Glucose 85 mg/dL (65-115); Lipase 30 U/L (13-60); Osmolality Calculated 293 mOsm/kg (285-295); Potassium 3.5 mmol/L (3.5-5.1); Sodium 143 mmol/L (136-145); Total Bilirubin 0.2 mg/dL (0.15-1.2); Total Protein 7.4 g/dL (6.6-8.7)
[2023-11-28 02:14] VITALS: BP 111/90; PULSE 86; RESP 16; O2SAT 98
[2023-11-28] MEDS: ketorolac 30 mg/mL INJ IVP (02:19)
[2023-11-28 02:20] VITALS: RESP 16; O2SAT 98
[2023-11-28] MEDS: sodium chloride 0.9% 1,000 ML 999 ML IV (02:20)
[2023-11-28] MEDS: morphine 4 mg/mL SDV 1 mL IVP (02:20)
[2023-11-28] MEDS: ondansetron 2 mg/ML SDV 2 mL 4 MG IVP (02:20)
[2023-11-28 03:14] VITALS: BP 129/89; PULSE 75; RESP 16; O2SAT 98
[2023-11-28 03:25] VITALS: PULSE 84; RESP 18; O2SAT 99
== END 2023-11-28 03:27 | disposition home or self-care (01) ==
PROVIDERS: Emergency Provider Emergency Medicine; PCP Family Medicine
DX: N83.201 Unspecified ovarian cyst, right side (principal); Z87.891 Personal history of nicotine dependence
CPT/HCPCS: 76856; 80053; 82550; 83690; 84703; 85025; 86140; 96374; 96375; 99285; J1885; J2270; J2405; J7030

== ENCOUNTER → 2024-03-14 14:54 | Outpatient (BNVA) | payer MEDICAID, SELFPAY | PROVIDERS: PCP Family Medicine; Visit Provider Nurse Practitioner | DX: J06.9 Acute upper respiratory infection, unspecified (principal) | CPT/HCPCS: 87400 ==

== ENCOUNTER 2024-08-29 06:08 | Emergency (ER) | payer SELFPAY ==
--- NOTE | 2024-08-29 06:11 | ECG_ITS ---
[facility] Test Date: 2024-08-29 Pat Name: Dianne Hidalgo Department: Room: Gender: Female Patient Registration Supervisor: : 2000 Requested By: Aubrey Keller Order Number: [id number] Josse MD: Filipe Westbrook M.D. Measurements Intervals [place] Rate: 80 P: 47 W[place]: 189 QRS: 8 QRSD: 86 T: 13 QT: 349 QTc: 405 Interpretive Statements SINUS RHYTHM LOW QRS VOLTAGE IN PRECORDIAL LEADS [QRS DEFLECTION < 1.0 mV IN CHEST LEADS] Compared to ECG 08/07/2018 04:51:47 Low QRS voltage now present Myocardial infarct finding no longer present Electronically Signed On 08-30-2024 12:36:11 CDT by Filipe Westbrook M.D. [email or web address]
[2024-08-29 06:12] VITALS: BP 117/70; PULSE 89; RESP 20; TEMP 36.6; O2SAT 98; BMI 38.7
--- NOTE | 2024-08-29 06:16 | XRR_ITS ---
PROCEDURE INFORMATION: Exam: XR Chest Exam date and time: 08/29/2024 6:27 AM Age: 24 years old Clinical indication: Cough and shortness of breath; Additional info: Dyspnea/cough TECHNIQUE: Imaging protocol: Radiologic exam of the chest. Views: 1 view. COMPARISON: CR XR chest 1V [id number] 08/07/2018 5:04 AM FINDINGS: Lungs: Unremarkable. No consolidation. Pleural spaces: Unremarkable. No pleural effusion. No pneumothorax. Heart/Mediastinum: Unremarkable. No cardiomegaly. Bones/joints: Unremarkable. XR/XR chest 1V portable [id number] IMPRESSION: No acute findings.
--- NOTE | 2024-08-29 06:16 | W.ED.CHESTPA ---
HPI - Chest Pain General: Chief Complaint: Chest Pain Stated Complaint: chest pains right side Time Seen by Provider: 08/29/24 06:16 History of Present Illness: 24-year-old female presents emergency room complaint of right-sided chest pain began spontaneously while sleeping while exit wound for a while she became with her cremated. She is specially concerned because she is take phentermine she is under brief time blood pressure went up so she stopped taking it she has no known valvular disease from it. She is on metformin for PCOS. Pains increases slightly with palpation and a deep inspiration no recent fever sweats or chills. Associated symptoms: Deny abdominal pain, dyspnea or fever(s) Related Data Home Medications ?Medication ?Instructions ?Recorded ?Confirmed phentermine 37.5 mg capsule 37.5 mg PO DAILY 05/26/23 03/14/24 levothyroxine 75 mcg tablet 75 mcg PO QAM 11/26/23 03/14/24 Previous Rx's ?Medication ?Instructions ?Recorded ketorolac 10 mg tablet 10 mg PO TID PRN pain #10 tabs 11/28/23 ondansetron 4 mg disintegrating 4 mg PO Q6H PRN nausea and 11/28/23 tablet vomiting #14 tabs Allergies Allergy/AdvReac Type Severity Reaction Status Date / Time No Known Allergies Allergy Verified 08/29/24 06:15 Review of Systems Const: Denies: fever(s) or chills Card: Reports: chest pain Resp: Denies: dyspnea GI: Denies: abdominal pain : Denies: dysuria, urinary frequency or urinary urgency Musc: Denies: neck pain or back pain Skin/Breast: Denies: rash [facility] ED PFSH: Medical History (Updated 08/29/24 @ 07:28 by Aubrey Arredondo DO) Anxiety with depression Abnormal uterine bleeding (AUB) Surgical History No pertinent past surgical history Family History Family/Other Breast cancer, Onset Age: 75 maternal aunt Diabetes maternal aunt Grandmother Stroke maternal Diabetes Maternal grandmother Hypertension Maternal grandmother Mother Diabetes Hypertension Sister Ovarian cancer Denies family history of Colon cancer Clotting disorder Hyperlipidemia Chronic kidney disease (CKD) Anesthesia complication Family history of thyroid problem Bleeding disorder Uterine cancer Social History Smoking and tobacco/nicotine status: unknown if used tobacco/nicotine Quit status (tobacco/nicotine): has quit using Year quit tobacco: 2018 Alcohol intake: never Substance/Drug Use: never Physical Exam Const: GENERAL APPEARANCE: cooperative ORIENTATION/CONSCIOUSNESS: Yes awake, Yes oriented to person, Yes oriented to place and Yes oriented to time HENMT: COMMON NORMALS: normocephalic, atraumatic and hearing grossly normal bilaterally HEAD & SCALP: normocephalic and atraumatic Resp: COMMON NORMALS: normal respiratory effort, No retractions, No use of accessory muscles and clear to auscultation bilaterally AUSCULTATION: clear to auscultation bilaterally Cardio: COMMON NORMALS: regular rate, regular rhythm and No murmurs present (Cardio) RATE: regular rate RHYTHM: regular rhythm GI: COMMON NORMALS: Soft to palpation and No hepatosplenomegaly present AUSCULTATION: Yes normoactive bowel sounds PALPATION: Yes Soft to palpation, No Tenderness to palpation present (GI), No Guarding due to palpation present (GI) and Yes No hepatosplenomegaly present Extremity: COMMON NORMALS: normal to inspection, capillary refill normal, no clubbing, cyanosis or edema, no calf tenderness and no pedal edema Neuro: SENSORIUM/ORIENTATION: Yes oriented to person, Yes oriented to place and Yes oriented to time Skin: COMMON NORMALS: no rashes or lesions noted GENERAL SKIN EXAM: no rashes or lesions noted Course Vital Signs: Vital signs: Vital Signs Temperature 97.8 F 08/29/24 06:12 Pulse Rate 70 08/29/24 07:38 Respiratory Rate 20 H 08/29/24 06:12 Blood Pressure 110/72 08/29/24 07:38 Pulse Oximetry 98 08/29/24 07:38 Oxygen Delivery Me thod Room Air 08/29/24 06:12 MDM - Chest Pain Medical Decision Making Labs and imaging reviewed. Chest x-ray done and also pneumonia or pneumothorax D-dimer unremarkable pain is reproduced with palpation and inspiration troponin negative EKG did not show any acute changes will discharge patient home supportive cares follow-up as needed return if has further problems. Medical Records I reviewed the patient's medical records. Lab Data 08/29/24 06:20 08/29/24 06:20 Radiology Impressions Chest X-Ray 08/29/24 06:16 IMPRESSION: No acute findings. Laboratory Results WBC 9.59 10^3/uL (3.29-11.43) 08/29/24 06:20 RBC 4.50 10^6/uL (3.85-5.65) 08/29/24 06:20 Hgb 11.70 g/dL (11.27-16.99) 08/29/24 06:20 Hct 36.9 % (36-47) 08/29/24 06:20 MCV 82.0 fl (85-98) L 08/29/24 06:20 MCH 26.0 pg (27-33) L 08/29/24 06:20 MCHC 31.7 g/dL (30-55) 08/29/24 06:20 RDW 13.1 % (12.1-15.1) 08/29/24 06:20 Plt Count 299 10^3/cmm (157-399) 08/29/24 06:20 MPV 9.8 fL (7.4-10.4) 08/29/24 06:20 Neut % (Auto) 57.2 % 08/29/24 06:20 Lymph % (Auto) 32.4 % 08/29/24 06:20 [place] % (Auto) 7.5 % 08/29/24 06:20 Eos % (Auto) 2.1 % 08/29/24 06:20 Baso % (Auto) 0.5 % 08/29/24 06:20 Neut # (Auto) 5.48 10^3/uL (1.8-7.7) 08/29/24 06:20 Lymph # (Auto) 3.1 10^3/uL (0.8-4.8) 08/29/24 06:20 [place] # (Auto) 0.7 10^3/uL (0.2-0.9) 08/29/24 06:20 Eos # (Auto) 0.2 10^3/uL (0.0-0.8) 08/29/24 06:20 Baso # (Auto) 0.1 10^3/uL (0.0-0.1) 08/29/24 06:20 Nucleated RBC % (auto) 0 % 08/29/24 06:20 Nucleated RBCs # 0.0 /100WBC 08/29/24 06:20 D-Dimer <= 0.27 ug/mLFEU (0-0.59) 08/29/24 06:20 Sodium 136 mmol/L (136-145) 08/29/24 06:20 Potassium 4.1 mmol/L (3.5-5.1) 08/29/24 06:20 Chloride 105 mmol/L (98-107) 08/29/24 06:20 Carbon Dioxide 23 mmol/L (22-29) 08/29/24 06:20 Anion Gap 12.1 (5-19) 08/29/24 06:20 BUN 9 mg/dL (6-20) 08/29/24 06:20 Creatinine 0.7 mg/dL (0.5-0.9) 08/29/24 06:20 GFR Calculation 102.0 mL/min (90-130) 08/29/24 06:20 Glucose 96 mg/dL (65-115) 08/29/24 06:20 Calculated Osmolality 281 mOsm/kg (285-295) L 08/29/24 06:20 Calcium 9.0 mg/dL (8.5-10.5) 08/29/24 06:20 Total Bilirubin 0.2 mg/dL (0.15-1.2) 08/29/24 06:20 AST 9 U/L (0-32) 08/29/24 06:20 ALT 8 U/L (0-33) 08/29/24 06:20 Alkaline Phosphatase 62 U/L (35-105) 08/29/24 06:20 Troponin T Baseline < 6 ng/L (0-10) 08/29/24 06:20 Total Protein 7.9 g/dL (6.6-8.7) 08/29/24 06:20 Albumin 4.3 g/dL (3.5-5.2) 08/29/24 06:20 Globulin 3.6 g/dL (1.3-4.6) 08/29/24 06:20 Influenza A (PCR) Negative (Negative) 08/29/24 06:30 Influenza Type B (PCR) Negative (Negative) 08/29/24 06:30 RSV (PCR) Negative (Negative) 08/29/24 06:30 SARS-CoV-2 (PCR) Negative (Negative) 08/29/24 06:30 All radiology interpretation(s) finalized by discharge Discharge Plan Discharge Patient Disposition: Home Clinical Impression: Atypical chest pain, Anterior chest wall pain Condition: Stable Prescriptions: No Action phentermine 37.5 mg capsule 37.5 mg PO DAILY Rx Instructions: must administer 30 minutes before or 1-2 hours after breakfast levothyroxine 75 mcg tablet 75 mcg PO QAM ketorolac 10 mg tablet 10 mg PO TID PRN (Reason: pain) Qty: 10 0RF ondansetron 4 mg tablet,disintegrating 4 mg PO Q6H PRN (Reason: nausea and vomiting) Qty: 14 0RF Discharge Orders: Discharge ED (Routine); Ordered 08/29/24 Ordered By: Aubrey Arredondo Referrals: León Vences MD [Primary Care Provider] - Discharge Diet: Usual diet Discharge Activity: Increase activity as tolerated Patient Instructions: Opioid Safety, Pain Management Activity Restrictions/Additional Instructions: Thank you for choosing [facility] for your healthcare needs today. It is very important that you follow up as instructed or that you return to the Emergency Department should you have concerns or if your condition changes or worsens in any way. You were seen in the emergency room for chest discomfort. Your laboratory tests EKG and chest x-ray were normal. Chest pain is consistent with chest wall pain. Will discharge home you can use Tylenol or ibuprofen as needed if symptoms persist follow-up with your primary care doctor. Stand Alone Forms: Work/School Release Print Language: Telugu Coding Level of Care Code ED Clinic Clerk for Traci Quan
[2024-08-29 06:25] LABS: Basophils # 0.1 10^3/uL (0.0-0.1); Basophils % 0.5 %; Eosinophils # 0.2 10^3/uL (0.0-0.8); Eosinophils % 2.1 %; Hematocrit 36.9 % (36-47); Lymphocytes # 3.1 10^3/uL (0.8-4.8); Lymphocytes % 32.4 %; Mean Corpuscular HGB Conc 31.7 g/dL (30-55); Mean Platelet Volume 9.8 fL (7.4-10.4); Monocytes # 0.7 10^3/uL (0.2-0.9); Monocytes % 7.5 %; Neutrophils # 5.48 10^3/uL (1.8-7.7); Neutrophils % 57.2 %; Nucleated Red Blood Cells % 0 %; Platelet Count 299 10^3/cmm (157-399); Red Cell Distribution Width 13.1 % (12.1-15.1); White Blood Count 9.59 10^3/uL (3.29-11.43)
[2024-08-29 06:44] LABS: D Dimer <= 0.27 ug/mLFEU (0-0.59)
[2024-08-29 06:48] LABS: Alanine Aminotransferase 8 U/L (0-33); Albumin Level 4.3 g/dL (3.5-5.2); Alkaline Phosphatase 62 U/L (35-105); Anion Gap 12.1 (5-19); Aspartate Amino Transferase 9 U/L (0-32); Blood Urea Nitrogen 9 mg/dL (6-20); Carbon Dioxide 23 mmol/L (22-29); Chloride 105 mmol/L (98-107); Creatinine Clr Calc Pharmacy 148.3217; Globulin 3.6 g/dL (1.3-4.6); Glucose 96 mg/dL (65-115); Osmolality Calculated 281 mOsm/kg (285-295); Potassium 4.1 mmol/L (3.5-5.1); Sodium 136 mmol/L (136-145); Total Bilirubin 0.2 mg/dL (0.15-1.2); Total Protein 7.9 g/dL (6.6-8.7)
[2024-08-29 07:02] LABS: Troponin(5th) Baseline < 6 ng/L (0-10)
[2024-08-29 07:17] LABS: Influenza A NEGATIVE (Negative); Influenza B NEGATIVE (Negative); Respiratory Syncytial Virus Ce NEGATIVE (Negative); SARS-CoV-2 PCR NEGATIVE (Negative)
[2024-08-29 07:38] VITALS: BP 110/72; PULSE 70; O2SAT 98
== END 2024-08-29 07:39 | disposition home or self-care (01) ==
PROVIDERS: Emergency Provider Family Medicine; PCP Family Medicine
DX: R07.89 Other chest pain (principal); Z11.52 Encounter for screening for COVID-19
CPT/HCPCS: 71045; 80053; 84484; 85025; 85378; 87637; 93005; 99285

== ENCOUNTER → 2025-05-26 14:17 | Outpatient (BNVA) | payer OTHER, SELFPAY | PROVIDERS: PCP Family Medicine | DX: R05.9 Cough, unspecified (principal); J02.9 Acute pharyngitis, unspecified | CPT/HCPCS: 87400; 87420 ==